=== PATIENT | male | born 1970 | race African-American/Black ===

== ENCOUNTER 2017-06-05 16:24 | Emergency (ER) | payer SELFPAY ==
[2017-06-05] MEDS ORDERED: NORMAL SALINE 1000 ML 1,000 ML IV ONE (17:48)
[2017-06-05] MEDS ORDERED: INSULIN REG, HUMAN 100 UNIT/ML 3 ML VIAL (PYX) IV ONE (17:48)
--- NOTE | 2017-06-05 17:49 | ER Document Report ---
ED Medical Screen (RME) - General Chief Complaint: High Blood Sugar Stated Complaint: HIGH BLOOD SUGAR Time Seen by Provider: 06/05/17 17:48 Notes: Patient states that he is diabetic and usually receives his medicine from the [facility]. However he states that he recently started a job and now he makes too much money to go to the clinic. Therefore he states he has no more medications. He states she has been without his metformin for 3 months and without his insulin for several days. Patient had a blood sugar of 460 at triage. He complains of frequent urination weakness and blurry vision. TRAVEL OUTSIDE OF THE [place] IN LAST 30 DAYS: No - Related Data Allergies/Adverse Reactions: No Known Allergies Allergy (Verified 06/05/17 16:27) Past Medical History - Social History Frequency of alcohol use: Occasional - Past Medical History Cardiac Medical History: Reports: Hx Hypertension Endocrine Medical History: Reports: Hx Diabetes Mellitus Type 2 Renal/ Medical History: Denies: Hx Peritoneal Dialysis GI Medical History: Reports: Hx Gastroesophageal Reflux Disease Past Surgical History: Reports: Hx Orthopedic Surgery - left hip - Immunizations Hx Diphtheria, Pertussis, Tetanus Vaccination: Yes - 2008 Physical Exam - Vital signs Vitals: Temp Pulse Resp BP Pulse Ox 99.1 F 99 16 138/83 H 99 06/05/17 16:38 06/05/17 16:38 06/05/17 16:38 06/05/17 16:38 06/05/17 16:38 Course - Vital Signs Vital signs: Temp Pulse Resp BP Pulse Ox 99.1 F 99 16 138/83 H 99 06/05/17 16:38 06/05/17 16:38 06/05/17 16:38 06/05/17 16:38 06/05/17 16:38
[2017-06-05 18:13] LABS: ABSOLUTE BASOPHILS # (AUTO) 0.1 10^3/uL (0.0-0.2); ABSOLUTE EOSINOPHILS # (AUTO) 0.2 10^3/uL (0.0-0.6); ABSOLUTE LYMPHOCYTES (AUTO) 2.6 10^3/uL (0.5-4.7); ABSOLUTE MONOCYTES (AUTO) 0.6 10^3/uL (0.1-1.4); ABSOLUTE NEUT (AUTO) 7.3 10^3/uL (1.7-8.2); BASOPHILS % (AUTO) 0.5 % (0-2); EOSINOPHILS % (AUTO) 1.8 % (0-6); HEMATOCRIT 39.9 % (37.9-51.0); HEMOGLOBIN 12.9 g/dL (13.5-17.0); LYMPHOCYTES % (AUTO) 24.3 % (13-45); MEAN CORPUSCULAR HEMOGLOBIN 22.8 pg (27.0-33.4); MEAN CORPUSCULAR HGB CONC 32.3 g/dL (32.0-36.0); MEAN CORPUSCULAR VOLUME 71 fl (80-97); MONOCYTES % (AUTO) 5.8 % (3-13); PLATELET COUNT 249 10^3/uL (150-450); RED BLOOD COUNT 5.65 10^6/uL (4.35-5.55); RED CELL DISTRIBUTION WIDTH 13.2 % (11.5-14.0); SEGMENTED NEUTROPHILS % (AUTO) 67.6 % (42-78); TOTAL CELLS COUNTED % (AUTO) 100 %; WHITE BLOOD COUNT 10.8 10^3/uL (4.0-10.5)
[2017-06-05 18:34] LABS: APPEARANCE,URINE CLEAR; BILIRUBIN,URINE NEGATIVE (NEGATIVE); COLOR,URINE STRAW; GLUCOSE, URINE >=500 mg/dL (NEGATIVE); KETONES,URINE TRACE mg/dL (NEGATIVE); LEUKOCYTE ESTERASE,URINE NEGATIVE (NEGATIVE); NITRITE,URINE NEGATIVE (NEGATIVE); PROTEIN,URINE NEGATIVE (NEGATIVE); UROBILINOGEN,URINE NEGATIVE mg/dL (<2.0)
[2017-06-05 18:37] LABS: ALANINE AMINOTRANSFERASE 28 U/L (21-72); ALBUMIN 4.4 g/dL (3.5-5.0); ALKALINE PHOSPHATASE 127 U/L (38-126); ANION GAP 16 (5-19); ASPARTATE AMINO TRANSFERASE 14 U/L (17-59); BILIRUBIN,DIRECT 0.3 mg/dL (0.0-0.4); BILIRUBIN,TOTAL 0.3 mg/dL (0.2-1.3); BLOOD UREA NITROGEN 8 mg/dL (7-20); CALCIUM 9.7 mg/dL (8.4-10.2); CARBON DIOXIDE 29 mmol/L (22-30); CHLORIDE 95 mmol/L (98-107); POTASSIUM 4.2 mmol/L (3.6-5.0); SODIUM 139.5 mmol/L (137-145); TOTAL PROTEIN 7.7 g/dL (6.3-8.2)
[2017-06-05 18:49] LABS: GLUCOSE 460 mg/dL (75-110)
[2017-06-05 19:24] LABS: VENOUS BLOOD BASE EXCESS 2.6 mmol/L; VENOUS BLOOD HCO3 28.6 mmol/L (20-32); VENOUS BLOOD PCO2 50.2 mmHg (35-63); VENOUS BLOOD PH 7.37 (7.30-7.42)
--- NOTE | 2017-06-05 19:49 | ER Document Report ---
ED Blood Sugar Problem - General Chief Complaint: High Blood Sugar Stated Complaint: HIGH BLOOD SUGAR Time Seen by Provider: 06/05/17 17:48 Notes: This is a 47-year-old male history of type 2 diabetes who has not been taking his medications who presents with hyperglycemia. Has had some increased frequency of urination and thirst. Otherwise denies any other symptoms other than blood sugar being elevated. Does not check his blood sugar. Was taking Humalog 10 units prior to each meal, Lantus 20 units at night as well as metformin twice a day. Has not taken any of this for approximately 3 months. TRAVEL OUTSIDE OF THE [place] IN LAST 30 DAYS: No - Related Data Allergies/Adverse Reactions: No Known Allergies Allergy (Verified 06/05/17 16:27) Past Medical History - General Information source: Patient - Social History Smoking Status: Current Every Day Smoker Cigarette use (# per day): Yes Frequency of alcohol use: None Drug Abuse: None Lives with: Family Family History: Reviewed & Not Pertinent, DM Patient has suicidal ideation: No Patient has homicidal ideation: No - Past Medical History Cardiac Medical History: Reports: Hx Hypertension Endocrine Medical History: Reports: Hx Diabetes Mellitus Type 2 Renal/ Medical History: Denies: Hx Peritoneal Dialysis GI Medical History: Reports: Hx Gastroesophageal Reflux Disease Past Surgical History: Reports: Hx Orthopedic Surgery - left hip - Immunizations Hx Diphtheria, Pertussis, Tetanus Vaccination: Yes - 2008 Review of Systems - Review of Systems Constitutional: No symptoms reported EENT: No symptoms reported Cardiovascular: No symptoms reported Respiratory: No symptoms reported Gastrointestinal: No symptoms reported Genitourinary: Frequency, Urgency. denies: Hematuria, Incontinence Male Genitourinary: No symptoms reported Musculoskeletal: No symptoms reported Skin: No symptoms reported Hematologic/Lymphatic: No symptoms reported Neurological/Psychological: No symptoms reported Physical Exam - Vital signs Vitals: Temp Pulse Resp BP Pulse Ox 99.1 F 99 16 138/83 H 99 06/05/17 16:38 06/05/17 16:38 06/05/17 16:38 06/05/17 16:38 06/05/17 16:38 Interpretation: Normal - General General appearance: Appears well, Alert - HEENT Head: Normocephalic, Atraumatic Eyes: Normal Pupils: PERRL - Respiratory Respiratory status: No respiratory distress Chest status: Nontender Breath sounds: Normal Chest palpation: Normal - Cardiovascular Rhythm: Regular Heart sounds: Normal auscultation Murmur: No - Abdominal Inspection: Normal Distension: No distension Bowel sounds: Normal Tenderness: Nontender Organomegaly: No organomegaly - Back Back: Normal, Nontender - Extremities General upper extremity: Normal inspection, Nontender, Normal color, Normal ROM , Normal temperature General lower extremity: Normal inspection, Nontender, Normal color, Normal ROM , Normal temperature, Normal weight bearing. No: Luisa's sign - Neurological Neuro grossly intact: Yes Cognition: Normal Orientation: AAOx4 [place] Coma Scale Eye Opening: Spontaneous [place] Coma Scale Verbal: Oriented [place] Coma Scale Motor: Obeys Commands [place] Coma Scale Total: 15 Speech: Normal Motor strength normal: LUE, RUE, LLE, RLE Sensory: Normal - Psychological Associated symptoms: Normal affect, Normal mood - Skin Skin Temperature: Warm Skin Moisture: Dry Skin Color: Normal Course - Re-evaluation Re-evalutation: 06/05/17 19:48 This is a well-appearing 47-year-old -[place] male in no acute distress with hyperglycemia. Will do basic labs. Did some diabetic education with regards to dietary changes that will help and bring blood sugar down. EKG was unremarkable. Giving some IV fluids and insulin at this time and reassess. It is unlikely that the patient is in DKA. 06/05/17 20:56 Not in DKA. Blood sugar coming down actually quite quickly. Will feed patient at this time. Will refill his prescriptions and advised to follow-up with [facility] as soon as possible. - Vital Signs Vital signs: Temp Pulse Resp BP Pulse Ox 99.1 F 99 16 138/83 H 99 06/05/17 16:38 06/05/17 16:38 06/05/17 16:38 06/05/17 16:38 06/05/17 16:38 - Laboratory Result Diagrams: 06/05/17 18:00 06/05/17 18:00 Laboratory results interpreted by me: 06/05/17 06/05/17 06/05/17 18:00 18:00 18:00 WBC 10.8 H RBC 5.65 H Hgb 12.9 L MCV 71 L MCH 22.8 L Chloride 95 L Glucose 460 H* AST 14 L Alkaline Phosphatase 127 H Urine Glucose (UA) >=500 H Urine Ketones TRACE H - EKG Interpretation by Me EKG shows normal: Sinus rhythm, [place], Intervals, QRS Complexes, ST-T Waves Discharge - Discharge Clinical Impression: Hyperglycemia due to type 2 diabetes mellitus Qualifiers: Diabetes mellitus local intermodal truck driver insulin use: with local intermodal truck driver use Qualified Code(s): E11.65 - Type 2 diabetes mellitus with hyperglycemia; Z79.4 - ocean transportation intermediary (current ) use of insulin; Z79.4 - ocean transportation intermediary (current) use of insulin; Z79.4 - ocean transportation intermediary (current) use of insulin; Z79.4 - ocean transportation intermediary (current) use of insulin Condition: Good Disposition: HOME, SELF-CARE Instructions: Diabetes ([facility]) Additional Instructions: It is very important that you begin your diabetic treatment is long-term consequences can be severe for poorly treated diabetes. Please follow-up with your clinic for further evaluation. It is also very important that you check your blood sugar on a regular basis. Prescriptions: Insulin Glargine,Hum.rec.anlog [Lantus Insulin 100 Unit/1 ml 10 ml] 10 unit SUBCUT QHS 30 Days #10 ml Metformin HCl [Glucophage 500 mg Tablet] 500 mg PO BID #60 tablet Referrals: [facility] [Provider Group] - Follow up as needed
[2017-06-05 21:21] VITALS: BP 127/76
--- NOTE | 2017-06-06 07:51 | EKG REPORT ---
SEVERITY:- NORMAL ECG - SINUS RHYTHM : Confirmed by: Damien Mckay MD 06-Jun-2017 07:50:25
== END 2017-06-05 21:19 | disposition home or self-care (01) ==
LOC: ER 16:24
DX: E11.65 Type 2 diabetes mellitus with hyperglycemia (principal); T38.3X6A Underdosing of insulin and oral hypoglycemic [antidiabetic] drugs, initial encounter; Z91.128 Patient's intentional underdosing of medication regimen for other reason; Z91.14 Patient's other noncompliance with medication regimen; F17.210 Nicotine dependence, cigarettes, uncomplicated; I10 Essential (primary) hypertension
CPT/HCPCS: 93005; 99284; 96360; 36415; 82962; 85025; 80053; 81001; 84484; 82803; 93010; J7030; J1815

== ENCOUNTER 2017-06-28 08:35 | Emergency (ER) | payer SELFPAY ==
[2017-06-28] MEDS ORDERED: NORMAL SALINE 1000 ML 1,000 ML IV ONE (09:15)
--- NOTE | 2017-06-28 09:51 | ER Document Report ---
ED Blood Sugar Problem <VERONICA MORRELL - Last Filed: 06/28/17 13:13> - General TRAVEL OUTSIDE OF THE [place] IN LAST 30 DAYS: No <BRIANA ROTHMAN - Last Filed: 06/28/17 13:46> - General Chief Complaint: High Blood Sugar Stated Complaint: BLOOD SUGAR PROBLEMS Time Seen by Provider: 06/28/17 09:37 Notes: 47-year-old male patient comes emergency room for elevated blood sugars. His blood sugars run in the 400 500 range. He was seen here on 06/05/2017 at that time reported no medications in 3 months. He was given a prescription for metformin 500 mg twice daily and Lantus 10 units nightly. He did not fill the Lantus prescription due to the expense of the medication. He did get the Metformin medicine. He was not acidotic on that visit. Review of his records going back several years shows that he never has a low CO2, is never in ketoacidosis despite running sugars in the 400-500 range and not taking any medication at all. The patient states that he has lost 16 pounds since the visit about 3 weeks ago , review of the records confirms this. I suspect he would do all right with oral hypoglycemic sulfonylurea medication. (VERONICA MORRELL) - Related Data Allergies/Adverse Reactions: No Known Allergies Allergy (Verified 06/05/17 16:27) Past Medical History - General Information source: Patient - Social History Smoking Status: Never Smoker Cigarette use (# per day): No Frequency of alcohol use: None Drug Abuse: None Lives with: Family Family History: Reviewed & Not Pertinent, DM - Past Medical History Cardiac Medical History: Reports: Hx Hypertension Endocrine Medical History: Reports: Hx Diabetes Mellitus Type 2 GI Medical History: Reports: Hx Gastroesophageal Reflux Disease Past Surgical History: Reports: Hx Orthopedic Surgery - left hip - Immunizations Hx Diphtheria, Pertussis, Tetanus Vaccination: Yes - 2008 <BRIANA ROTHMAN - Last Filed: 06/28/17 13:46> Review of Systems - Review of Systems Constitutional: See HPI, Other - elevated blood sugars, Weight loss - 16 lbs in 2-3 weeks EENT: No symptoms reported Cardiovascular: No symptoms reported Respiratory: No symptoms reported Gastrointestinal: No symptoms reported Genitourinary: No symptoms reported Male Genitourinary: No symptoms reported Musculoskeletal: No symptoms reported Skin: No symptoms reported Hematologic/Lymphatic: No symptoms reported Neurological/Psychological: No symptoms reported -: Yes All other systems reviewed and negative <BRIANA ROTHMAN - Last Filed: 06/28/17 13:46> Physical Exam <VERONICA MORRELL - Last Filed: 06/28/17 13:13> <BRIANA ROTHMAN - Last Filed: 06/28/17 13:46> - Vital signs Vitals: Temp Pulse Resp BP Pulse Ox 98.5 F 107 H 16 141/86 H 96 06/28/17 09:06 06/28/17 09:06 06/28/17 09:06 06/28/17 09:06 06/28/17 09:06 - Notes Notes: Physical Exam: General: Alert, appears well. HEENT: Normocephalic. Atraumatic. PERRL. Extraocular movements intact. Oropharynx clear. Neck: Supple. Non-tender. Respiratory: No respiratory distress. Clear and equal breath sounds bilaterally. Cardiovascular: Regular rate and rhythm. Abdominal: Normal Inspection. Non-tender. No distension. Normal Bowel Sounds. Back: Non-tender. No deformity or step off. Extremities: Moves all four extremities. Upper extremities: Normal inspection. Normal ROM. Lower extremities: Normal inspection. No edema. Normal ROM. Neurological: Normal cognition. AAOx4. Normal speech. Psychological: Normal affect. Normal Mood. Skin: Warm. Dry. Normal color. (BRIANA ROTHMAN) Course - Laboratory Result Diagrams: 06/28/17 09:45 06/28/17 09:45 <VERONICA MORRELL - Last Filed: 06/28/17 13:13> - Laboratory Result Diagrams: 06/28/17 09:45 06/28/17 09:45 <BRIANA ROTHMAN - Last Filed: 06/28/17 13:46> - Re-evaluation Re-evalutation: 06/28/17 13:14 Patient's blood sugar came down from 705-357 with 8 units of regular insulin. He will be discharged with prescriptions for metformin and glipizide. He will be encouraged to follow-up with primary care provider to manage his diabetes. (VERONICA MORRELL) - Vital Signs Vital signs: Temp Pulse Resp BP Pulse Ox 98.5 F 107 H 16 141/86 H 96 06/28/17 09:06 06/28/17 09:06 06/28/17 09:06 06/28/17 09:06 06/28/17 09:06 - Laboratory Laboratory results interpreted by me: 06/28/17 06/28/17 06/28/17 09:45 09:45 09:45 WBC 11.7 H RBC 6.09 H Hgb 13.3 L MCV 71 L MCH 21.8 L MCHC 30.8 L Seg Neutrophils % 79.1 H Absolute Neutrophils 9.3 H Chloride 90 L Anion Gap 20 H Glucose 705 H* POC Glucose Hemoglobin A1c % > 14.0 H Alkaline Phosphatase 161 H Urine Glucose (UA) Urine Ketones 06/28/17 06/28/17 10:20 12:56 WBC RBC Hgb MCV MCH MCHC Seg Neutrophils % Absolute Neutrophils Chloride Anion Gap Glucose POC Glucose 357 H Hemoglobin A1c % Alkaline Phosphatase Urine Glucose (UA) >=500 H Urine Ketones 20 H Discharge <VERONICA MORRELL - Last Filed: 06/28/17 13:13> <BRIANA ROTHMAN - Last Filed: 06/28/17 13:46> - Discharge Clinical Impression: Hyperglycemia due to type 2 diabetes mellitus Qualifiers: Diabetes mellitus shelter insulin use: without retail parts pro use Qualified Code(s ): E11.65 - Type 2 diabetes mellitus with hyperglycemia Condition: Stable Disposition: HOME, SELF-CARE Additional Instructions: Diabetes You have an abnormally high blood sugar. Uncontrolled high blood sugar leads to early heart disease, strokes, nerve damage, eye damage, and kidney damage. All diabetics should follow a diet designed to control the blood sugar. Overweight diabetics should exercise regularly and lose weight. If this is not sufficient to control the blood sugar, pills or insulin shots are necessary. Younger people who develop diabetes almost always require insulin daily. Home testing of blood sugars or urine sugar is required. Diabetic teaching is available to help you figure insulin doses and monitor the blood sugar. Call the physician if there is faintness, excess sleepiness, or very rapid breathing. If hypoglycemia (LOW blood sugar) develops, symptoms are shakiness, weakness, sweating, and confusion. In this case, you should eat or drink something with sugar at once. Take the medications as prescribed. You were given a one-month supply of diabetes medication. Check your blood sugars regularly. Follow-up with a local medical doctor before you run out of medication. RETURN TO THE EMERGENCY ROOM IF ANY NEW OR WORSENING SYMPTOMS. Prescriptions: Glipizide 5 mg PO DAILY #30 tablet Metformin HCl 850 mg PO BID #60 tablet Scribe Attestation: 06/28/17 13:17 I personally performed the services described in the documentation, reviewed and edited the documentation which was dictated to the scribe in my presence, and it accurately records my words and actions. (VERONICA MORRELL) Scribe Documentation - Scribe Written by Lali:: Lali Lindo, 06/28/2017 1346 acting as scribe for :: Holley <BRIANA ROTHMAN - Last Filed: 06/28/17 13:46>
[2017-06-28 09:56] LABS: ABSOLUTE LYMPHOCYTES (AUTO) 1.7 10^3/uL (0.5-4.7); ABSOLUTE MONOCYTES (AUTO) 0.6 10^3/uL (0.1-1.4); ABSOLUTE NEUT (AUTO) 9.3 10^3/uL (1.7-8.2); BASOPHILS % (AUTO) 0.4 % (0-2); EOSINOPHILS % (AUTO) 0.4 % (0-6); HEMATOCRIT 43.2 % (37.9-51.0); HEMOGLOBIN 13.3 g/dL (13.5-17.0); LYMPHOCYTES % (AUTO) 14.9 % (13-45); MEAN CORPUSCULAR HEMOGLOBIN 21.8 pg (27.0-33.4); MEAN CORPUSCULAR HGB CONC 30.8 g/dL (32.0-36.0); MEAN CORPUSCULAR VOLUME 71 fl (80-97); MONOCYTES % (AUTO) 5.2 % (3-13); PLATELET COUNT 291 10^3/uL (150-450); RED BLOOD COUNT 6.09 10^6/uL (4.35-5.55); RED CELL DISTRIBUTION WIDTH 13.5 % (11.5-14.0); SEGMENTED NEUTROPHILS % (AUTO) 79.1 % (42-78); TOTAL CELLS COUNTED % (AUTO) 100 %; WHITE BLOOD COUNT 11.7 10^3/uL (4.0-10.5)
[2017-06-28 10:14] LABS: ALANINE AMINOTRANSFERASE 36 U/L (21-72); ALBUMIN 4.6 g/dL (3.5-5.0); ALKALINE PHOSPHATASE 161 U/L (38-126); ASPARTATE AMINO TRANSFERASE 17 U/L (17-59); BILIRUBIN,DIRECT 0.4 mg/dL (0.0-0.4); BILIRUBIN,TOTAL 0.4 mg/dL (0.2-1.3); BLOOD UREA NITROGEN 12 mg/dL (7-20); CHLORIDE 90 mmol/L (98-107); POTASSIUM 4.7 mmol/L (3.6-5.0); TOTAL PROTEIN 7.7 g/dL (6.3-8.2)
[2017-06-28 10:19] LABS: CARBON DIOXIDE 28 mmol/L (22-30); SODIUM 138.4 mmol/L (137-145)
[2017-06-28] MEDS ORDERED: INSULIN REG, HUMAN 100 UNIT/ML 3 ML VIAL (PYX) IV ONE (10:41)
[2017-06-28 10:49] LABS: ANION GAP 20 (5-19)
[2017-06-28 10:50] LABS: GLUCOSE 705 mg/dL (75-110)
[2017-06-28 11:33] LABS: APPEARANCE,URINE CLEAR; BILIRUBIN,URINE NEGATIVE (NEGATIVE); COLOR,URINE STRAW; GLUCOSE, URINE >=500 mg/dL (NEGATIVE); KETONES,URINE 20 mg/dL (NEGATIVE); LEUKOCYTE ESTERASE,URINE NEGATIVE (NEGATIVE); NITRITE,URINE NEGATIVE (NEGATIVE); PROTEIN,URINE NEGATIVE (NEGATIVE); UROBILINOGEN,URINE NEGATIVE mg/dL (<2.0)
[2017-06-28 14:15] VITALS: BP 109/79
== END 2017-06-28 13:39 | disposition home or self-care (01) ==
LOC: ER 08:35
DX: E11.65 Type 2 diabetes mellitus with hyperglycemia (principal); Z79.4 Long term (current) use of insulin; Z79.84 Long term (current) use of oral hypoglycemic drugs; R63.4 Abnormal weight loss; I10 Essential (primary) hypertension; E11.9 Type 2 diabetes mellitus without complications
CPT/HCPCS: 99285; 96360; 36415; 82962; 83735; 85025; 80053; 81001; 83036; J1815; J7030

== ENCOUNTER 2017-09-20 07:59 | Inpatient (IN) | payer SELFPAY ==
[2017-09-20] MEDS ORDERED: RINGERS SOLUTION,LACTATED 1,000 ML IV ONE (08:45)
--- NOTE | 2017-09-20 08:50 | ER Document Report ---
ED Medical Screen (RME) - General Chief Complaint: High Blood Sugar Stated Complaint: FALL/HEADACHE, BLOOD SUGAR ISSUE Time Seen by Provider: 09/20/17 08:44 Mode of Arrival: Ambulatory Information source: Patient Notes: Patient presents to the emergency department with multiple complaints to include high blood glucose numbness vomiting 2 days ago. No vomiting since that time. Reports decreased appetite. Upon further assessment patient reports the numbness is actually a temporal headache. No obvious neuro deficits noted equal fleet manager/dispatch face symmetric. Clear speech. He reports that he has been out of his diabetic medication for at least 3 months. Reports when he woke up this morning fell out of bed. I have greeted and performed a rapid initial assessment of this patient. A comprehensive ED assessment and evaluation of the patient, analysis of test results and completion of the medical decision making process will be conducted by additional ED providers. TRAVEL OUTSIDE OF THE [place] IN LAST 30 DAYS: No - Related Data Allergies/Adverse Reactions: No Known Allergies Allergy (Verified 06/05/17 16:27) Past Medical History - Past Medical History Cardiac Medical History: Reports: Hx Hypertension Endocrine Medical History: Reports: Hx Diabetes Mellitus Type 2 Renal/ Medical History: Denies: Hx Peritoneal Dialysis GI Medical History: Reports: Hx Gastroesophageal Reflux Disease Past Surgical History: Reports: Hx Orthopedic Surgery - left hip - Immunizations Hx Diphtheria, Pertussis, Tetanus Vaccination: Yes - 2008 Physical Exam - Vital signs Vitals: Temp Pulse Resp BP Pulse Ox 97.9 F 109 H 15 111/83 99 09/20/17 08:10 09/20/17 08:10 09/20/17 08:10 09/20/17 08:10 09/20/17 08:10 Course - Vital Signs Vital signs: Temp Pulse Resp BP Pulse Ox 97.9 F 109 H 15 111/83 99 09/20/17 08:10 09/20/17 08:10 09/20/17 08:10 09/20/17 08:10 09/20/17 08:10
[2017-09-20 09:25] LABS: ABSOLUTE BASOPHILS # (AUTO) 0.1 10^3/uL (0.0-0.2); ABSOLUTE LYMPHOCYTES (AUTO) 1.5 10^3/uL (0.5-4.7); ABSOLUTE MONOCYTES (AUTO) 0.8 10^3/uL (0.1-1.4); BASOPHILS % (AUTO) 0.6 % (0-2); EOSINOPHILS % (AUTO) 0.3 % (0-6); HEMATOCRIT 39.2 % (37.9-51.0); HEMOGLOBIN 12.1 g/dL (13.5-17.0); LYMPHOCYTES % (AUTO) 10.1 % (13-45); MEAN CORPUSCULAR HEMOGLOBIN 22.5 pg (27.0-33.4); MEAN CORPUSCULAR HGB CONC 30.9 g/dL (32.0-36.0); MEAN CORPUSCULAR VOLUME 73 fl (80-97); MONOCYTES % (AUTO) 5.3 % (3-13); PLATELET COUNT 315 10^3/uL (150-450); RED BLOOD COUNT 5.38 10^6/uL (4.35-5.55); RED CELL DISTRIBUTION WIDTH 14.6 % (11.5-14.0); SEGMENTED NEUTROPHILS % (AUTO) 83.7 % (42-78); TOTAL CELLS COUNTED % (AUTO) 100 %; WHITE BLOOD COUNT 14.4 10^3/uL (4.0-10.5)
[2017-09-20 09:48] LABS: ALANINE AMINOTRANSFERASE 24 U/L (21-72); ALBUMIN 4.8 g/dL (3.5-5.0); ALKALINE PHOSPHATASE 136 U/L (38-126); ASPARTATE AMINO TRANSFERASE 15 U/L (17-59); BILIRUBIN,DIRECT 0.4 mg/dL (0.0-0.4); BLOOD UREA NITROGEN 11 mg/dL (7-20); POTASSIUM 4.7 mmol/L (3.6-5.0); TOTAL PROTEIN 8.4 g/dL (6.3-8.2)
[2017-09-20 09:52] LABS: APPEARANCE,URINE CLEAR; BILIRUBIN,URINE NEGATIVE (NEGATIVE); COLOR,URINE STRAW; GLUCOSE, URINE >=500 mg/dL (NEGATIVE); KETONES,URINE 20 mg/dL (NEGATIVE); LEUKOCYTE ESTERASE,URINE NEGATIVE (NEGATIVE); NITRITE,URINE NEGATIVE (NEGATIVE); PROTEIN,URINE NEGATIVE (NEGATIVE); URINE SPECIFIC GRAVITY 1.028; UROBILINOGEN,URINE NEGATIVE mg/dL (<2.0)
[2017-09-20 09:53] LABS: CARBON DIOXIDE 21 mmol/L (22-30); CHLORIDE 93 mmol/L (98-107); SODIUM 136.3 mmol/L (137-145)
--- NOTE | 2017-09-20 09:54 | EKG REPORT ---
SEVERITY:- OTHERWISE NORMAL ECG - SINUS RHYTHM ATRIAL PREMATURE COMPLEX ST ELEV, PROBABLE NORMAL EARLY REPOL PATTERN : Confirmed by: Betty Diaz MD 20-Sep-2017 09:54:22
[2017-09-20 09:55] LABS: ANION GAP 22 (5-19)
[2017-09-20 09:57] LABS: GLUCOSE 621 mg/dL (75-110)
--- NOTE | 2017-09-20 10:34 | ER Document Report ---
ED Blood Sugar Problem - General Mode of Arrival: Ambulatory Information source: Patient TRAVEL OUTSIDE OF THE [place] IN LAST 30 DAYS: No <BRIANA ROTHMAN - Last Filed: 09/20/17 13:36> <VERONICA MORRELL - Last Filed: 09/20/17 15:35> - General Chief Complaint: High Blood Sugar Stated Complaint: FALL/HEADACHE, BLOOD SUGAR ISSUE Time Seen by Provider: 09/20/17 08:44 Notes: 47-year-old noncompliant diabetic that presents to the emergency department today with complaints of elevated BGL's, pain behind left eye, dizziness, lightheadedness, and elevated heart rate. Patient states when getting out of bed this morning he fell because he was "too lightheaded to stand". Patient was seen here on 06/28/17 and given prescriptions for his insulin and metformin which he decided to not get filled because he "has to walk everywhere now". ( BRIANA ROTHMAN) - Related Data Allergies/Adverse Reactions: No Known Allergies Allergy (Verified 06/05/17 16:27) Past Medical History - General Information source: Patient - Social History Smoking Status: Current Every Day Smoker Cigarette use (# per day): Yes Lives with: Family Family History: Reviewed & Not Pertinent, DM Patient has suicidal ideation: No Patient has homicidal ideation: No - Past Medical History Cardiac Medical History: Reports: Hx Hypertension Endocrine Medical History: Reports: Hx Diabetes Mellitus Type 2 GI Medical History: Reports: Hx Gastroesophageal Reflux Disease Past Surgical History: Reports: Hx Orthopedic Surgery - left hip - Immunizations Hx Diphtheria, Pertussis, Tetanus Vaccination: Yes - 2008 <BRIANA ROTHMAN - Last Filed: 09/20/17 13:36> Review of Systems - Review of Systems Constitutional: No symptoms reported EENT: See HPI, Other - Pain behind left eye Cardiovascular: See HPI, Heart racing, Dizziness, Lightheaded Respiratory: No symptoms reported Gastrointestinal: No symptoms reported Genitourinary: No symptoms reported Male Genitourinary: No symptoms reported Musculoskeletal: No symptoms reported Skin: No symptoms reported Hematologic/Lymphatic: No symptoms reported Neurological/Psychological: No symptoms reported -: Yes All other systems reviewed and negative <BRIANA ROTHMAN - Last Filed: 09/20/17 13:36> Physical Exam <BRIANA ROTHMAN - Last Filed: 09/20/17 13:36> <VERONICA MORRELL - Last Filed: 09/20/17 15:35> - Vital signs Vitals: Temp Pulse Resp BP Pulse Ox 97.9 F 109 H 15 111/83 99 09/20/17 08:10 09/20/17 08:10 09/20/17 08:10 09/20/17 08:10 09/20/17 08:10 - Notes Notes: Physical Exam: General: Alert, appears well. Ketone odors on breath. HEENT: Normocephalic. Atraumatic. PERRL. Extraocular movements intact. Oropharynx clear. Left temporal and parietal tenderness to palpation. Neck: Supple. Posterior cervical musculature tenderness to palpation. Respiratory: No respiratory distress. Clear and equal breath sounds bilaterally. Cardiovascular: Regular rate and rhythm. Abdominal: Normal Inspection. Non-tender. No distension. Normal Bowel Sounds. Back: Non-tender. No deformity or step off. Extremities: Moves all four extremities. Upper extremities: Normal inspection. Normal ROM. Lower extremities: Normal inspection. No edema. Normal ROM. Neurological: Normal cognition. AAOx4. Normal speech. Psychological: Normal affect. Normal Mood. Skin: Warm. Dry. Normal color. (BRIANA ROTHMAN) Course - Laboratory Result Diagrams: 09/20/17 09:05 09/20/17 09:05 <BRIANA ROTHMAN - Last Filed: 09/20/17 13:36> - Laboratory Result Diagrams: 09/20/17 09:05 09/20/17 13:02 - EKG Interpretation by Me EKG shows normal: Sinus rhythm, [place], Intervals, QRS Complexes. abnormal: ST-T Waves - Early repolarization pattern Rate: Normal - 92 Rhythm: NSR, APC's When compared to previous EKG there are: No significant change - Consults Dr. Leavitt Time consulted: 15:25 Consulted provider: will come to ER <VERONICA MORRELL - Last Filed: 09/20/17 15:35> - Re-evaluation Re-evalutation: 09/20/17 15:31 About 1.5 hours after I saw the patient, the nurse noted him to have runs of tachycardia and got an EKG. G showed a heart rate of 132 and look suspicious for atrial flutter. I did have the lumber loader section cutter reviewed the second EKG and he agreed that it is most likely atrial flutter. Patient was given 10 mg of Cardizem IV, and it slowed his rate down to about 100 where he has an atrial rhythm with frequent PACs and occasional PVCs. (VERONICA MORRELL) - Vital Signs Vital signs: Temp Pulse Resp BP Pulse Ox 97.9 F 109 H 0 L 117/80 100 09/20/17 08:10 09/20/17 08:10 09/20/17 14:15 09/20/17 14:15 09/20/17 14:15 - Laboratory Laboratory results interpreted by me: 09/20/17 09/20/17 09/20/17 08:19 09:05 09:05 WBC 14.4 H Hgb 12.1 L MCV 73 L MCH 22.5 L MCHC 30.9 L RDW 14.6 H Seg Neutrophils % 83.7 H Lymphocytes % 10.1 L Absolute Neutrophils 12.0 H D-Dimer Sodium 136.3 L Chloride 93 L Carbon Dioxide 21 L Anion Gap 22 H Creatinine Glucose 621 H* POC Glucose > 550 H* AST 15 L Alkaline Phosphatase 136 H Total Protein 8.4 H Urine Glucose (UA) Urine Ketones 09/20/17 09/20/17 09/20/17 09:05 09:05 13:02 WBC Hgb MCV MCH MCHC RDW Seg Neutrophils % Lymphocytes % Absolute Neutrophils D-Dimer 0.76 H Sodium Chloride Carbon Dioxide 21 L Anion Gap Creatinine 0.51 L Glucose 265 H POC Glucose AST Alkaline Phosphatase Total Protein Urine Glucose (UA) >=500 H Urine Ketones 20 H Critical Care Note - Critical Care Note Total time excluding time spent on procedures (mins): 30 <VERONICA MORRELL - Last Filed: 09/20/17 15:35> Discharge <BRIANA ROTHMAN - Last Filed: 09/20/17 13:36> - Discharge Admitting Provider: Hospitalist Unit Admitted: [facility]U <VERONICA MORRELL - Last Filed: 09/20/17 15:35> - Discharge Clinical Impression: Hyperglycemia, Non-compliant patient, Atrial flutter with rapid ventricular response Condition: Stable Disposition: ADMITTED INPATIENT Scribe Attestation: 09/20/17 15:28 I personally performed the services described in the documentation, reviewed and edited the documentation which was dictated to the scribe in my presence, and it accurately records my words and actions. (VERONICA MORRELL) Scribe Documentation - Scribe Written by Lali:: Lali Lindo, 09/20/2017 1347 acting as scribe for :: Holley <BRIANA ROTHMAN - Last Filed: 09/20/17 13:36>
[2017-09-20] MEDS ORDERED: INSULIN REG, HUMAN 100 UNIT/ML 3 ML VIAL (PYX) IV ONE (10:52)
[2017-09-20] MEDS ORDERED: NORMAL SALINE 1000 ML 1,000 ML IV ONE ×2 (10:53→12:25)
[2017-09-20 12:29] LABS: CREATINE KINASE 88 U/L (55-170)
[2017-09-20 13:03] LABS: URINE AMPHETAMINES SCREEN NEGATIVE; URINE BARBITURATES SCREEN NEGATIVE; URINE BENZODIAZEPINES SCREEN NEGATIVE; URINE COCAINE SCREEN NEGATIVE; URINE MARIJUANA (THC) SCREEN NEGATIVE; URINE METHADONE SCREEN NEGATIVE; URINE PHENCYCLIDINE SCREEN NEGATIVE
[2017-09-20 13:38] LABS: ANION GAP 15 (5-19); BLOOD UREA NITROGEN 9 mg/dL (7-20); CALCIUM 8.6 mg/dL (8.4-10.2); CARBON DIOXIDE 21 mmol/L (22-30); CHLORIDE 105 mmol/L (98-107); GLUCOSE 265 mg/dL (75-110); SODIUM 141.1 mmol/L (137-145)
[2017-09-20] MEDS ORDERED: DILTIAZEM HCL INJ 25 MG/5 ML VIAL IV ONE (13:46)
[2017-09-20] MEDS ORDERED: CIPROFLOXACIN HCL 750 MG TABLET PO ONE (14:02)
[2017-09-20] MEDS ORDERED: METRONIDAZOLE 500 MG TABLET PO ONE (14:02)
[2017-09-20 15:58] LABS: CREATINE KINASE 93 U/L (55-170)
--- NOTE | 2017-09-20 16:01 | RADIOLOGY REPORT (SQ) ---
EXAM DESCRIPTION: CHEST SINGLE VIEW COMPLETED DATE/TIME: 09/20/2017 3:46 pm REASON FOR STUDY: Atrial flutter with RVR COMPARISON: 09/29/2012. EXAM PARAMETERS: NUMBER OF VIEWS: One view. TECHNIQUE: Single frontal radiographic view of the chest acquired. RADIATION DOSE: NA LIMITATIONS: None. FINDINGS: LUNGS AND PLEURA: No opacities, masses or pneumothorax. No pleural effusion. MEDIASTINUM AND HILAR STRUCTURES: No masses. Contour normal. HEART AND VASCULAR STRUCTURES: Heart normal in size. Normal vasculature. BONES: Scoliosis. Deformity of the left scapula, presumed due to previous trauma. HARDWARE: None in the chest. OTHER: No other significant finding. IMPRESSION: NO ACUTE RADIOGRAPHIC FINDING IN THE CHEST. TECHNICAL DOCUMENTATION: JOB ID: [id number] [employer]- All Rights Reserved Reading location - IP/workstation name: [email or web address]
[2017-09-20 16:11] LABS: CREATINE KINASE MB 1.01 ng/mL (<4.55); TROPONIN I < 0.012 ng/mL
[2017-09-20] MEDS ORDERED: GLUCAGON,HUMAN RECOMB 1 MG INJ IM PRN (16:56)
[2017-09-20] MEDS ORDERED: IPRATROPIUM/ALBUTEROL 0.5-2.5 MG/3 ML AMPUL NEB PRN (16:56)
[2017-09-20] MEDS ORDERED: OXYCODONE-ACETAMINOPHEN 5-325 MG TABLET PO PRN (16:56)
[2017-09-20] MEDS ORDERED: DEXTROSE 40% GEL 15 GM TUBE PO PRN ×2 (16:56)
[2017-09-20] MEDS ORDERED: ACETAMINOPHEN 325 MG TABLET PO PRN (16:56)
[2017-09-20] MEDS ORDERED: PROMETHAZINE HCL INJ 25 MG/1 ML VIAL IV PRN (16:56)
[2017-09-20] MEDS ORDERED: ZOLPIDEM TARTRATE 5 MG TABLET PO PRN (16:56)
[2017-09-20] MEDS ORDERED: DEXTROSE 50%-WATER 25 GM/50 ML DISP.SYRIN IV PRN ×2 (16:56)
--- NOTE | 2017-09-20 18:32 | PDOC H&P ---
History of Present Illness Admission Date/PCP: 09/20/17 15:41 Patient complains of: Elevated blood sugar History of Present Illness: JAQUI ORELLANA is a 47 year old male Patient presents emergency room with complaints of his blood sugar being high. His glucose was found to be 620 on initial presentatation. He does have a known history of type 2 diabetes mellitus but he appears patient has been having difficulty procuring his insulin and his noncompliant because of these. He had taken metformin at one time but he says this caused him to have diarrhea and he had to be taken off it but on the other hand is unable to afford his insulin. His sugar was actually quickly corrected in the emergency room but it appears that in the course of his management he was found to be tachycardic. Patient did appear to be in atrial fibrillation with a rapid ventricular response. Was treated with 1 dose of diltiazem 10 mg IV and it appears he did break and is currently in sinus rhythm. Patient denies any problem such symptoms or any prior diagnosis of atrial fibrillation. There is no fever nausea or vomiting or chest pain Past Medical History Cardiac Medical History: Reports: Hypertension Endocrine Medical History: Reports: Diabetes Mellitus Type 2 GI Medical History: Reports: Gastroesophageal Reflux Disease Past Surgical History Past Surgical History: Reports: Orthopedic Surgery - left hip Social History Lives with: Family Smoking Status: Current Every Day Smoker - Advance Directive Resuscitation Status: Full Code Family History Family History: Reviewed & Not Pertinent, DM Parental Family History Reviewed: Yes Children Family History Reviewed: NA Sibling(s) Family History Reviewed.: Yes Medication/Allergy Home Medications: No Home Medications 09/20/17 Allergies/Adverse Reactions: No Known Allergies Allergy (Verified 06/05/17 16:27) Review of Systems All systems: reviewed and no additional remarkable complaints except as stated Physical Exam Vital Signs: Temp Pulse Resp BP Pulse Ox 97.5 F 94 16 120/83 100 09/20/17 16:59 09/20/17 17:07 09/20/17 16:59 09/20/17 16:59 09/20/17 16:59 Intake & Output 09/19/17 09/20/17 09/21/17 06:59 06:59 06:59 Intake Total 237 Balance 237 Weight 62.9 kg General appearance: PRESENT: no acute distress, well-developed, well-nourished Head exam: PRESENT: atraumatic, normocephalic Eye exam: PRESENT: conjunctiva pink, EOMI, PERRLA. ABSENT: scleral icterus Ear exam: PRESENT: normal external ear exam Mouth exam: PRESENT: moist, tongue midline Neck exam: ABSENT: carotid bruit, JVD, lymphadenopathy, thyromegaly Respiratory exam: PRESENT: clear to auscultation harvey. ABSENT: rales, rhonchi, wheezes Cardiovascular exam: PRESENT: RRR. ABSENT: diastolic murmur, rubs, systolic murmur Pulses: PRESENT: normal dorsalis pedis pul Vascular exam: PRESENT: normal capillary refill GI/Abdominal exam: PRESENT: normal bowel sounds, soft. ABSENT: distended, guarding, mass, organolmegaly, rebound, tenderness Rectal exam: PRESENT: deferred Extremities exam: PRESENT: full ROM. ABSENT: calf tenderness, clubbing, pedal edema Neurological exam: PRESENT: alert, awake, oriented to person, oriented to place , oriented to time, oriented to situation, CN II-XII grossly intact. ABSENT: motor sensory deficit Psychiatric exam: PRESENT: appropriate affect, normal mood. ABSENT: homicidal ideation, suicidal ideation Skin exam: PRESENT: dry, intact, warm. ABSENT: cyanosis, rash Results Laboratory Results: 09/20/17 09:05 09/20/17 13:02 MCV 73 fl (80-97) L 09/20/17 09:05 MCH 22.5 pg (27.0-33.4) L 09/20/17 09:05 MCHC 30.9 g/dL (32.0-36.0) L 09/20/17 09:05 RDW 14.6 % (11.5-14.0) H 09/20/17 09:05 Seg Neutrophils % 83.7 % (42-78) H 09/20/17 09:05 Lymphocytes % 10.1 % (13-45) L 09/20/17 09:05 Monocytes % 5.3 % (3-13) 09/20/17 09:05 Eosinophils % 0.3 % (0-6) 09/20/17 09:05 Basophils % 0.6 % (0-2) 09/20/17 09:05 Absolute Neutrophils 12.0 10^3/uL (1.7-8.2) H 09/20/17 09:05 Absolute Lymphocytes 1.5 10^3/uL (0.5-4.7) 09/20/17 09:05 Absolute Monocytes 0.8 10^3/uL (0.1-1.4) 09/20/17 09:05 Absolute Eosinophils 0.0 10^3/uL (0.0-0.6) 09/20/17 09:05 Absolute Basophils 0.1 10^3/uL (0.0-0.2) 09/20/17 09:05 Chloride 105 mmol/L (98-107) 09/20/17 13:02 Carbon Dioxide 21 mmol/L (22-30) L 09/20/17 13:02 Anion Gap 15 (5-19) 09/20/17 13:02 Est GFR ( Amer) > 60 (>60) 09/20/17 13:02 Est GFR (Non-Af Amer) > 60 (>60) 09/20/17 13:02 Glucose 265 mg/dL (75-110) H 09/20/17 13:02 Calcium 8.6 mg/dL (8.4-10.2) 09/20/17 13:02 Magnesium 2.2 mg/dL (1.6-2.3) 09/20/17 09:05 Total Bilirubin 1.0 mg/dL (0.2-1.3) 09/20/17 09:05 AST 15 U/L (17-59) L 09/20/17 09:05 ALT 24 U/L (21-72) 09/20/17 09:05 Alkaline Phosphatase 136 U/L (38-126) H 09/20/17 09:05 Total Protein 8.4 g/dL (6.3-8.2) H 09/20/17 09:05 Albumin 4.8 g/dL (3.5-5.0) 09/20/17 09:05 TSH 0.87 uIU/mL (0.47-4.68) 09/20/17 09:05 Urine Color STRAW 09/20/17 09:05 Urine Appearance CLEAR 09/20/17 09:05 Urine pH 5.0 (5.0-9.0) 09/20/17 09:05 Ur Specific [place] 1.028 09/20/17 09:05 Urine Protein NEGATIVE mg/dL (NEGATIVE) 09/20/17 09:05 Urine Glucose (UA) >=500 mg/dL (NEGATIVE) H 09/20/17 09:05 Urine Ketones 20 mg/dL (NEGATIVE) H 09/20/17 09:05 Urine Blood NEGATIVE (NEGATIVE) 09/20/17 09:05 Urine Nitrite NEGATIVE (NEGATIVE) 09/20/17 09:05 Ur Leukocyte Esterase NEGATIVE (NEGATIVE) 09/20/17 09:05 Urine WBC (Auto) 0 /HPF 09/20/17 09:05 09/20/17 09/20/17 09/20/17 09:05 13:02 13:02 Creatine Kinase 88 93 CK-MB (CK-2) 1.01 Troponin I < 0.012 Impressions: Chest X-Ray 09/20/17 15:31 IMPRESSION: NO ACUTE RADIOGRAPHIC FINDING IN THE CHEST. 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 He will be placed on sliding scale insulin as well as Lantus insulin. Will contact our social work coordinator to see how can help this gentleman as this is going to be a recurrent problem if he is unable to afford his insulin. We will also consider starting him on oral hypoglycemic agent (2) Atrial fibrillation by electrocardiogram Is this a current diagnosis for this admission?: Yes Plan: This is likely related to his hyperglycemia and electrolyte abnormalities. He did receive Cardizem IV in the ER and he has since been in sinus rhythm. I will go ahead and obtain an echocardiogram and that Dr. Griffin has been consulted. He is still tachycardic so I will start him off on low-dose Cardizem. (3) Hyperglycemia Is this a current diagnosis for this admission?: Yes Plan: Secondary to noncompliance with medication regimen (4) Non-compliant patient Is this a current diagnosis for this admission?: Yes - Time Time Spent: 50 to 70 Minutes Medications reviewed and adjusted accordingly: Yes Anticipated discharge: Home Within: within 48 hours - Inpatient Certification Based on my medical assessment, after consideration of the patient's comorbidities, presenting symptoms, or acuity I expect that the services needed warrant INPATIENT care.: Yes Medical Necessity: Need For IV Fluids, Risk of Complication if Not Cared For in Hospital
[2017-09-20] MEDS: DILTIAZEM HCL 120 MG CAP.SR.24H PO SCH (20:18)
[2017-09-20] MEDS: NORMAL SALINE 1000 ML 1,000 ML IV PRN (20:48)
[2017-09-20] MEDS: INSULIN REG, HUMAN 100 UNIT/ML 3 ML VIAL (PYX) SUBCUT PRN (21:53)
[2017-09-20] MEDS: FAMOTIDINE 20 MG TABLET PO SCH (21:54)
[2017-09-20] MEDS ORDERED: INSULIN GLARGINE,HUM.REC.ANLOG 300 UNIT/3 ML INSULN.PEN SUBCUT SCH (22:00)
--- NOTE | 2017-09-20 22:08 | XCELERA REPORT ---
[address] [address] Transthoracic Echocardiogram Report Name: JAQUI ORELLANA Age: 47 yrs Gender: Male : 1970 Patient Status: Inpatient Patient Location: [address] [place], [place] [address] Study Date: 09/20/2017 07:48 PM Height: 67 in Weight: 138 lb BSA: 1.7 m2 Procedure: A complete two-dimensional transthoracic echocardiogram was performed (2D, M-mode, spectral and color flow Doppler). The study was technically adequate with some images being suboptimal in quality. Reason For Study: Atrial Fibrillation, New Ordering Physician: WILFREDO CHOUDHURY Performed By: Courtney Valerio Interpretation Summary The left ventricular ejection fraction is normal. There is borderline concentric left ventricular hypertrophy. Doppler measurements suggest impaired left ventricular relaxation, which is associated with grade I/IV or mild diastolic dysfunction The left ventricle is grossly normal size. Wall motion cannot be accurately commented on, but no definite regional wall motion abnormalities noted. The right ventricular systolic function is normal. The right atrium is normal. The left atrial size is normal. There is a trace to mild amount of mitral regurgitation There is no mitral valve stenosis. No aortic regurgitation is present. There is no aortic valve stenosis There is a trace or physiologic amount of tricuspid regurgitation Right ventricular systolic pressure is at the upper limits of normal The aortic root is not well visualized but is probably normal size. The inferior vena cava was not well visualized Minimal pericardial effusion. MMode/2D Measurements & Calculations RVDd: 1.9 cm LVIDd: 4.4 cm FS: 37.0 % LA dimension: 2.6 cm IVSd: 0.84 cm LVIDs: 2.8 cm EDV(Teich): 89.3 ml LVPWd: 0.79 cm ESV(Teich): 29.4 ml EF(Teich): 67.0 % LVOT diam: 2.0 cm LVOT area: 3.0 cm2 Doppler Measurements & Calculations MV E max neris: MV P1/2t max neris: Ao V2 max: LV V1 max P.6 cm/sec 97.7 cm/sec 133.8 cm/sec 3.9 mmHg MV A max neris: MV P1/2t: 47.8 msec Ao max P.2 mmHg LV V1 max: 73.5 cm/sec MVA(P1/2t): 4.6 cm2 BETTY(V,D): 2.2 cm2 99.2 cm/sec MV E/A: 0.91 MV dec slope: 599.2 cm/sec2 MV dec time: 0.21 sec PA V2 max: TR max neris: MV P1/2t-pr_phl: 73.7 cm/sec 224.4 cm/sec 47.8 msec PA max PG: TR max P.1 mmHg 2.2 mmHg Left Ventricle The left ventricle is grossly normal size. There is borderline concentric left ventricular hypertrophy. The left ventricular ejection fraction is normal. Doppler measurements suggest impaired left ventricular relaxation, which is associated with grade I/IV or mild diastolic dysfunction. Wall motion cannot be accurately commented on, but no definite regional wall motion abnormalities noted. Right Ventricle The right ventricle is grossly normal size. There is normal right ventricular wall thickness. The right ventricular systolic function is normal. Atria The right atrium is normal. The left atrial size is normal. Interarterial septum not well visualized and not well dopplered. Cannot comment on ASD/PFO presence. Mitral Valve The mitral valve is grossly normal. There is no mitral valve stenosis. There is a trace to mild amount of mitral regurgitation. Aortic Valve The aortic valve is grossly normal. There is no aortic valve stenosis. No aortic regurgitation is present. Tricuspid Valve The tricuspid valve is not well visualized, but is grossly normal. There is no tricuspid stenosis. There is a trace or physiologic amount of tricuspid regurgitation. Right ventricular systolic pressure is at the upper limits of normal. Pulmonic Valve The pulmonic valve is not well seen, but is grossly normal. Great Vessels The aortic root is not well visualized but is probably normal size. The inferior vena cava was not well visualized. Effusions Minimal pericardial effusion. : WILFREDO CHOUDHURY > Landon Griffin
--- NOTE | 2017-09-20 22:39 | PDOC CONSULTATION ---
Consultation Consult Date: 09/20/17 Attending physician:: WILFREDO CHOUDHURY Consult reason:: Tachycardia History of Present Illness Admission Date/PCP: 09/20/17 15:41 Patient complains of: Palpitations History of Present Illness: JAQUI ORELLANA is a 47 year old male, Patient presents emergency room with complaints of his blood sugar being high. His glucose was found to be 620 on initial presentatation. He does have a known history of type 2 diabetes mellitus but he appears patient has been having difficulty procuring his insulin and his noncompliant because of these. He had taken metformin at one time but he says this caused him to have diarrhea and he had to be taken off it but on the other hand is unable to afford his insulin. His sugar was actually quickly corrected in the emergency room but it appears that in the course of his management he was found to be tachycardic. Patient did appear to be in atrial fibrillation with a rapid ventricular response. Was treated with 1 dose of diltiazem 10 mg IV and it appears he did break and is currently in sinus rhythm. Patient denies any problem such symptoms or any prior diagnosis of atrial fibrillation. There is no fever nausea or vomiting or chest pain. Patient denies any prior history of heart problems. Patient denied any history of angina, CHF, sustained palpitations, syncope, near syncope. He did feel transient palpitations in the ER. Past Medical History Cardiac Medical History: Reports: Hypertension Endocrine Medical History: Reports: Diabetes Mellitus Type 2 GI Medical History: Reports: Gastroesophageal Reflux Disease Past Surgical History Past Surgical History: Reports: Orthopedic Surgery - left hip Social History Information Source: Patient Lives with: Family Smoking Status: Current Every Day Smoker - Advance Directive Resuscitation Status: Full Code Family History Family History: DM, Hypertension Parental Family History Reviewed: Yes Children Family History Reviewed: Yes Sibling(s) Family History Reviewed.: Yes Medication/Allergy Home Medications: No Home Medications 09/20/17 Allergies/Adverse Reactions: No Known Allergies Allergy (Verified 06/05/17 16:27) Review of Systems Review of Systems: Please see history of present illness and past medical history as wall. Constitutional: No fever or chills reported. Head : No recent chronic headaches, recent head injury. Eyes: No recent eye pain, diplopia, redness, discharge, acute visual changes. Ears: No recent chronic ear pain, acute hearing loss, ear discharge. Oral cavity: No recent ulcerations, bleeding, oral cavity discomfort. Neck: No recent acute neck pain reported. Hematologic: No recent easy bruising or bleeding. Lymphatic: No recent lymph node enlargement reported. Cardiovascular system review: See history of present illness. Respiratory system review: No hemoptysis or blood clots in the lungs reported. Mild Shortness of breath on exertion Gastrointestinal system review: Negative for any recent acute hematemesis, melena. Genitourinary system review: No recent acute or chronic hematuria, flank pain, UTI etc. reported. Skin system review: Negative for any recent abnormal bruising, no rash, no pruritus reported. Neurologic: No prior history of strokes, mini strokes, seizure disorder. Psychologic: No history of major psychosis or major depression reported. Musculoskeletal: Minor aches and pains reported. No acute joint swelling reported. Endocrine: No recent polyuria, polydipsia, recent heat or cold intolerance. Physical Exam Vital Signs: Temp Pulse Resp BP Pulse Ox 98.7 F 95 16 126/79 H 100 09/20/17 19:29 09/20/17 19:29 09/20/17 19:29 09/20/17 19:29 09/20/17 19:29 Intake & Output 09/19/17 09/20/17 09/21/17 06:59 06:59 06:59 Intake Total 237 Balance 237 Weight 62.9 kg Exam: GENERAL: well-nourished and in no acute distress. Alert and oriented x3 HEAD: Atraumatic, normocephalic. EYES: Pupils equal round and reactive to light, extraocular movements intact, sclera anicteric, conjunctiva are normal. ENT: TMs normal, nares patent, oropharynx clear without exudates. Moist mucous membranes. No oral ulcerations or bleeding gums noted NECK: supple without lymphadenopathy. Trachea is central. No cervical or axillary lymphadenopathy noted. Carotids are 2+, JVD WNL LUNGS: Respiration seems nonlabored, no significant accessory muscle action noted. Breath sounds clear to auscultation bilaterally and equal noted. No wheezes rales or rhonchi noted. No significant dullness noted on percussion. CHEST: Palpation of the chest wall shows no significant chest wall tenderness. 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 ABDOMEN: Soft, no significant tenderness appreciated, normoactive bowel sounds. No guarding, no rebound. No rigidity noted . No masses appreciated. EXTREMITIES: Pedal pulses are 1-2+, no calf tenderness noted. No clubbing or cyanosis. negative pedal edema noted NEUROLOGICAL: Focused neurological exam showed no significant neurologic deficit. Normal speech, no focal weakness appreciated. PSYCH: Normal mood, normal affect. Judgment and insight within normal limits. SKIN: No significant ecchymosis, skin is noted to be warm. MUSCULOSKELETAL EXAM: No significant acute joint swelling noted. Results EKG Comments: Twelve-lead EKG, one at least shows atrial fibrillation with RVR. Early repolarization changes noted. Impressions: Chest X-Ray 09/20/17 15:31 IMPRESSION: NO ACUTE RADIOGRAPHIC FINDING IN THE CHEST. Assessment & Plan - Diagnosis (1) Atrial fibrillation by electrocardiogram Is this a current diagnosis for this admission?: Yes (2) Hyperglycemia Is this a current diagnosis for this admission?: Yes (3) Non-compliant patient Is this a current diagnosis for this admission?: Yes (4) Type 2 diabetes mellitus Qualifiers: Diabetes mellitus detention insulin use: unspecified detention insulin use status Diabetes mellitus complication status: with unspecified complications Qualified Code(s): E11.8 - Type 2 diabetes mellitus with unspecified complications Is this a current diagnosis for this admission?: Yes - Notes Notes: Atrial fibrillation: Transient. Most likely related to hyperglycemia with treatment with insulin which can cause rapid shift in electrolytes especially intracellular leading to atrial fibrillation. Patient should be advised in compliance. Agree with continuing Cardizem CD at 120 mg p.o. daily. Do not feel there is need for chronic anticoagulation, as this was very transient atrial fibrillation. Hyperglycemia: Agree with maintaining glucose and tight control. Tight control is indicated in this young patient. Type 2 diabetes: We will leave management to the hospitalist. Noncompliance with medication: Patient will benefit from compliance with medications. A 2D echocardiogram was reviewed. It shows normal LVEF. No significant valvular abnormalities noted. Will sign off. Please reconsult if needed. - Time Time Spent: 30 to 50 Minutes - More than 50% of the time spent coordinating care , discussing management plans with involved caregivers. Management plans discussed with involved personnels. Medical decision making was of moderate to high complexity, patient's has multiple comorbidities. Medications reviewed and adjusted accordingly: Yes
--- NOTE | 2017-09-21 00:02 | EKG REPORT ---
SEVERITY:- ABNORMAL ECG - ATRIAL FIBRILLATION, V-RATE 107-153 ST ELEVATION :NON SPECIFIC : Confirmed by: Betty Diaz MD 21-Sep-2017 00:02:21
--- NOTE | 2017-09-21 00:02 | EKG REPORT ---
SEVERITY:- ABNORMAL ECG - SINUS RHYTHM BORDERLINE PROLONGED QT INTERVAL : Confirmed by: Betty Diaz MD 21-Sep-2017 00:01:30
[2017-09-21] MEDS: NORMAL SALINE 1000 ML 1,000 ML IV PRN ×2 (03:35→12:08)
[2017-09-21 05:52] LABS: ANION GAP 10 (5-19); BLOOD UREA NITROGEN 9 mg/dL (7-20); CALCIUM 8.1 mg/dL (8.4-10.2); CARBON DIOXIDE 21 mmol/L (22-30); CHLORIDE 108 mmol/L (98-107); GLUCOSE 188 mg/dL (75-110); HEMATOCRIT 32.2 % (37.9-51.0); MEAN CORPUSCULAR HEMOGLOBIN 22.3 pg (27.0-33.4); MEAN CORPUSCULAR VOLUME 72 fl (80-97); PLATELET COUNT 218 10^3/uL (150-450); POTASSIUM 3.5 mmol/L (3.6-5.0); RED BLOOD COUNT 4.47 10^6/uL (4.35-5.55); RED CELL DISTRIBUTION WIDTH 14.2 % (11.5-14.0); SODIUM 138.5 mmol/L (137-145); TRIGLYCERIDES 100 mg/dL (<150); WHITE BLOOD COUNT 11.7 10^3/uL (4.0-10.5)
[2017-09-21 06:02] LABS: DIRECT LDL 152 mg/dL (<100)
[2017-09-21] MEDS ORDERED: GLYBURIDE 5 MG TABLET PO SCH (08:00)
[2017-09-21] MEDS: INSULIN REG, HUMAN 100 UNIT/ML 3 ML VIAL (PYX) SUBCUT PRN ×2 (08:58→12:08)
[2017-09-21] MEDS: FAMOTIDINE 20 MG TABLET PO SCH (09:01)
[2017-09-21] MEDS: DILTIAZEM HCL 120 MG CAP.SR.24H PO SCH (09:01)
[2017-09-21] MEDS ORDERED: ENOXAPARIN SODIUM INJ 40 MG/0.4 ML DISP.SYRIN SUBCUT SCH (10:00)
--- NOTE | 2017-09-21 14:27 | PDOC DISCHARGE SUMMARY ---
General - Admit/Disc Date/PCP Admission Date/Primary Care Provider: 09/20/17 15:41 Discharge Date: 10/03/17 - Discharge Diagnosis (1) Type 2 diabetes mellitus Is this a current diagnosis for this admission?: Yes (2) Atrial fibrillation by electrocardiogram Is this a current diagnosis for this admission?: Yes (3) Hyperglycemia Is this a current diagnosis for this admission?: Yes (4) Non-compliant patient Is this a current diagnosis for this admission?: Yes - Additional Information Resuscitation Status: Full Code Discharge Diet: Diabetic Discharge Activity: Activity As Tolerated Prescriptions: Insulin Glargine,Hum.rec.anlog [Lantus Insulin 100 Unit/mL] 12 unit SUBCUT QHS # 1 insuln.pen Diltiazem HCl [Cardizem Cd 120 mg Capsule] 120 mg PO DAILY #30 cap.sr.24h Glyburide [Diabeta 5 mg Tablet] 5 mg PO BIDBS 60 Days tablet Home Medications: Diltiazem HCl [Cardizem Cd 120 mg Capsule] 120 mg PO DAILY #30 cap.sr.24h Glyburide [Diabeta 5 mg Tablet] 5 mg PO BIDBS 60 Days tablet 09/21/17 Insulin Glargine,Hum.rec.anlog [Lantus Insulin 100 Unit/mL] 12 unit SUBCUT QHS # 1 insuln.pen 09/21/17 History of Present Illness History of Present Illness: JAQUI ORELLANA is a 47 year old male Patient presents emergency room with complaints of his blood sugar being high. His glucose was found to be 620 on initial presentatation. He does have a known history of type 2 diabetes mellitus but he appears patient has been having difficulty procuring his insulin and his noncompliant because of these. He had taken metformin at one time but he says this caused him to have diarrhea and he had to be taken off it but on the other hand is unable to afford his insulin. His sugar was actually quickly corrected in the emergency room but it appears that in the course of his management he was found to be tachycardic. Patient did appear to be in atrial fibrillation with a rapid ventricular response. Was treated with 1 dose of diltiazem 10 mg IV and it appears he did break and is currently in sinus rhythm. Patient denies any problem such symptoms or any prior diagnosis of atrial fibrillation. There is no fever nausea or vomiting or chest pain Hospital Course Hospital Course: This patient presents emergency room with hypoglycemia. He admitted to not taking his insulin 40. If the last 6 months. He is blood sugar was about 620 on initial presentation. He was started on aggressive intravenous fluid and he also received insulin with improvement in his blood sugar. During the course of his treatment in the emergency room patient went into atrial fibrillation with a rapid ventricular response. Ultimately received 10 mg of Cardizem IV and is controlled his atrial fibrillation and he is remained in sinus rhythm since then. Echocardiogram was done which revealed a grossly intact left ventricular ejection fraction. He has been started on Cardizem. Patient has been counseled extensively on the need to be compliant with his medications. He was started on glyburide as patient states that he is unable to tolerate metformin. He will need further adjustment and evaluation of his insulin and his other medications and has been advised to follow-up at the [facility] in 1 week Patient has remained hemodynamically stable I would no further interventions been planned he is been discharged home. Physical Exam Vital Signs: Temp Pulse Resp BP Pulse Ox 98.5 F 87 17 115/77 100 09/21/17 11:48 09/21/17 12:26 09/21/17 12:26 09/21/17 11:48 09/21/17 12:26 Intake & Output 09/20/17 09/21/17 09/22/17 06:59 06:59 06:59 Intake Total 1459 1000 Output Total 600 Balance 859 1000 Weight 64.8 kg General appearance: PRESENT: no acute distress, thin Head exam: PRESENT: atraumatic, normocephalic Eye exam: PRESENT: EOMI, PERRLA. ABSENT: scleral icterus Ear exam: PRESENT: normal external ear exam Mouth exam: PRESENT: tongue midline Neck exam: ABSENT: carotid bruit, JVD, lymphadenopathy, thyromegaly Respiratory exam: PRESENT: clear to auscultation harvey. ABSENT: rales, rhonchi, wheezes Cardiovascular exam: PRESENT: RRR, +S1, +S2. ABSENT: diastolic murmur, rubs, systolic murmur Pulses: PRESENT: normal dorsalis pedis pul Vascular exam: PRESENT: normal capillary refill GI/Abdominal exam: PRESENT: normal bowel sounds, soft. ABSENT: distended, guarding, mass, organolmegaly, rebound, tenderness Rectal exam: PRESENT: deferred Extremities exam: PRESENT: full ROM. ABSENT: calf tenderness, clubbing, pedal edema Neurological exam: PRESENT: alert, awake, oriented to person, oriented to place , oriented to time, oriented to situation, CN II-XII grossly intact. ABSENT: motor sensory deficit Psychiatric exam: PRESENT: appropriate affect, normal mood. ABSENT: homicidal ideation, suicidal ideation Skin exam: PRESENT: dry, intact, warm. ABSENT: cyanosis, rash Results Laboratory Results: 09/21/17 04:54 09/21/17 04:54 09/21/17 09/21/17 04:54 04:54 WBC 11.7 H RBC 4.47 Hgb 10.0 L D Hct 32.2 L MCV 72 L MCH 22.3 L MCHC 31.0 L RDW 14.2 H Plt Count 218 Sodium 138.5 Potassium 3.5 L Chloride 108 H Carbon Dioxide 21 L Anion Gap 10 BUN 9 Creatinine 0.48 L Est GFR ( Amer) > 60 Est GFR (Non-Af Amer) > 60 Glucose 188 H Calcium 8.1 L Triglycerides 100 Cholesterol 221.90 H LDL Cholesterol Direct 152 H VLDL Cholesterol 20.0 HDL Cholesterol 36 L 09/21/17 04:54 Troponin I < 0.012 Impressions: Chest X-Ray 09/20/17 15:31 IMPRESSION: NO ACUTE RADIOGRAPHIC FINDING IN THE CHEST. Qualifiers - * PATIENT BEING DISCHARGED WITH ANY OF THE FOLLOWING DIAGNOSIS: No Plan Discharge Plan: Extensive discussion had with patient on the need to be compliant with his meds patients and medical instructions. Discussions were also held with the nursing staff as well as social service regarding the procurement of his insulin Time Spent: Greater than 30 Minutes
[2017-09-21 14:34] VITALS: BP 120/83
== END 2017-09-21 15:49 | disposition home or self-care (01) | DRG 639 ==
LOC: ER 07:59 → EH 15:41 → 3W 16:58
PROVIDERS: ADMIT Internal Medicine; ATTEND Internal Medicine
DX: E11.65 Type 2 diabetes mellitus with hyperglycemia (principal); I48.91 Unspecified atrial fibrillation; I10 Essential (primary) hypertension; F17.210 Nicotine dependence, cigarettes, uncomplicated; K21.9 Gastro-esophageal reflux disease without esophagitis; Z83.3 Family history of diabetes mellitus; Z91.14 Patient's other noncompliance with medication regimen; Z59.6 Low income; Z79.84 Long term (current) use of oral hypoglycemic drugs
CPT/HCPCS: 36415; 71045; 80048; 80053; 80061; 80307; 81001; 82550; 82553; 82962; 83735; 84443; 84484; 85025; 85027; 85379; 93005; 93010; 93306; 96361; 96365; 96366; 96375; 99291; J1650; J1815; J3490; J7030; J7120

== ENCOUNTER → 2017-10-10 | Outpatient (CLI) | payer OTHER ==
[2017-10-10 15:53] LABS: ANION GAP 9 (5-19); BLOOD UREA NITROGEN 11 mg/dL (7-20); CALCIUM 9.1 mg/dL (8.4-10.2); CARBON DIOXIDE 28 mmol/L (22-30); CHLORIDE 104 mmol/L (98-107); GLUCOSE 233 mg/dL (75-110); IRON(TIBC) 46.7 ug/dL (49-181); POTASSIUM 4.9 mmol/L (3.6-5.0); SODIUM 141.3 mmol/L (137-145)
[2017-10-15 15:37] LABS: HGB A 72.9 % (96.4-98.8); HGB A2 3.7 % (1.8-3.2); HGB S 23.4 % (0.0); HGB SOLUBILITY RESULT Positive (Negative)
== END ==
LOC: CCC 14:49
DX: D50.9 Iron deficiency anemia, unspecified (principal)
CPT/HCPCS: 36415; 80048; 82728; 83020; 83540; 83550; 84153; 84443

== ENCOUNTER 2018-03-04 08:08 | Emergency (ER) | payer SELFPAY ==
[2018-03-04 09:14] LABS: APPEARANCE,URINE CLEAR; BILIRUBIN,URINE NEGATIVE (NEGATIVE); COLOR,URINE YELLOW; GLUCOSE, URINE NEGATIVE (NEGATIVE); KETONES,URINE NEGATIVE (NEGATIVE); LEUKOCYTE ESTERASE,URINE TRACE (NEGATIVE); NITRITE,URINE NEGATIVE (NEGATIVE); PROTEIN,URINE NEGATIVE (NEGATIVE); URINE SPECIFIC GRAVITY 1.017; UROBILINOGEN,URINE NEGATIVE mg/dL (<2.0)
[2018-03-04 09:21] LABS: ABSOLUTE EOSINOPHILS # (AUTO) 0.1 10^3/uL (0.0-0.6); ABSOLUTE LYMPHOCYTES (AUTO) 1.7 10^3/uL (0.5-4.7); ABSOLUTE MONOCYTES (AUTO) 0.4 10^3/uL (0.1-1.4); ABSOLUTE NEUT (AUTO) 4.2 10^3/uL (1.7-8.2); BASOPHILS % (AUTO) 0.5 % (0-2); EOSINOPHILS % (AUTO) 2.1 % (0-6); HEMATOCRIT 40.7 % (37.9-51.0); HEMOGLOBIN 12.8 g/dL (13.5-17.0); LYMPHOCYTES % (AUTO) 26.9 % (13-45); MEAN CORPUSCULAR HEMOGLOBIN 23.1 pg (27.0-33.4); MEAN CORPUSCULAR HGB CONC 31.4 g/dL (32.0-36.0); MEAN CORPUSCULAR VOLUME 74 fl (80-97); MONOCYTES % (AUTO) 5.7 % (3-13); PLATELET COUNT 249 10^3/uL (150-450); RED BLOOD COUNT 5.54 10^6/uL (4.35-5.55); RED CELL DISTRIBUTION WIDTH 13.9 % (11.5-14.0); SEGMENTED NEUTROPHILS % (AUTO) 64.8 % (42-78); TOTAL CELLS COUNTED % (AUTO) 100 %; WHITE BLOOD COUNT 6.5 10^3/uL (4.0-10.5)
[2018-03-04] MEDS ORDERED: ASPIRIN 81 MG TABLET, CHEWABLE PO ONE (09:22)
--- NOTE | 2018-03-04 09:30 | ER Document Report ---
ED Blood Sugar Problem - General Chief Complaint: High Blood Sugar Stated Complaint: POSSIBLE HIGH SUGAR Time Seen by Provider: 03/04/18 09:13 Primary Care Provider: [facility] [NO LOCAL MD] - Follow up as needed TRAVEL OUTSIDE OF THE [place] IN LAST 30 DAYS: No - HPI Notes: Patient is a 47-year-old male that presents to the emergency department for chief complaint of chest pain and hyperglycemia. Patient states he started having chest pain over his right anterior chest and sternum. He states the pain has been intermittent for the last 2 days. When it is present it lasts for about 45 minutes at a time and is associated with palpitations and diaphoresis. He denies any associated dyspnea. He states that currently he does have some palpitations and chest pain but it is mild. He denies history of cardiac disease in the past. He reports that he is an insul in-dependent diabetic but does not have a home glucometer and has been checking his blood sugars at his [id number]. He states they have been continuing to increase and he is worried that he is hyperglycemic. He also reports blurry vision over the last 6 months. His vision is unchanged today. He has not recently seen ophthalmology. Past Medical History: Diabetes, hyperlipidemia Past Surgical History: Left hip replacement Social History: Daily tobacco, occasional alcohol, denies drug use Family History: Reviewed and noncontributory for presenting illness Allergies: Reviewed, see documented allergy list. REVIEW OF SYSTEMS: CONSTITUTIONAL : No fever No chills diaphoresis No recent illness EENT: vision changes No congestion No sore throat CARDIOVASCULAR: chest pain palpitations RESPIRATORY: No shortness of breath No cough No difficulty breathing GASTROINTESTINAL: No abdominal pain No nausea No vomiting No diarrhea GENITOURINARY: No dysuria No hematuria No difficulty urinating MUSCULOSKELETAL: No back pain No leg pain No arm pain SKIN: No rashes No lesions LYMPHATIC: No swollen, enlarged glands. NEUROLOGICAL: No lightheadedness No headache No weakness No paresthesias PSYCHIATRIC: No anxiety No depression PHYSICAL EXAMINATION: Vital signs reviewed, nursing noted reviewed. GENERAL: Well-appearing, well-nourished and in no acute distress. HEAD: Atraumatic, normocephalic. EYES: Eyes appear normal, extraocular movements intact, sclera anicteric, conjunctiva are normal. ENT: nares patent, oropharynx clear without exudates. Moist mucous membranes. NECK: Normal range of motion, supple without lymphadenopathy LUNGS: Breath sounds clear to auscultation bilaterally and equal. No wheezes rales or rhonchi. HEART: Regular rate and rhythm without murmurs ABDOMEN: Soft, nontender, normoactive bowel sounds. No rebound, guarding, or rigidity. No masses appreciated. EXTREMITIES: Nontender, good range of motion, no pitting or edema. NEUROLOGICAL: No focal neurological deficits. Moves all extremities sponta neously Motor and sensory grossly intact on exam. PSYCH: Normal mood, normal affect. SKIN: Warm, Dry, normal turgor, no rashes or lesions noted on exposed skin - Related Data Allergies/Adverse Reactions: No Known Allergies Allergy (Verified 03/04/18 08:15) Past Medical History - Social History Smoking Status: Current Every Day Smoker Family History: DM, Hypertension - Past Medical History Cardiac Medical History: Reports: Hx Hypertension Endocrine Medical History: Reports: Hx Diabetes Mellitus Type 2 Renal/ Medical History: Denies: Hx Peritoneal Dialysis GI Medical History: Reports: Hx Gastroesophageal Reflux Disease Past Surgical History: Reports: Hx Orthopedic Surgery - left hip - Immunizations Hx Diphtheria, Pertussis, Tetanus Vaccination: Yes - 2008 Physical Exam - Vital signs Vitals: Temp Pulse Resp BP Pulse Ox 98.3 F 88 18 139/83 H 100 03/04/18 08:20 03/04/18 08:20 03/04/18 08:20 03/04/18 08:20 03/04/18 08:20 Course - Re-evaluation Re-evalutation: 03/04/18 09:37 Vitals reviewed. Nursing notes reviewed. Patient given aspirin for his chest pain. His EKG appears unchanged from 09/20/17 03/04/18 13:11 Patient's initial and delta troponins are negative. His heart score is 3 putting him at a low risk for major adverse cardiac event. Currently do not suspect acute ACS. He has remained hemodynamically stable. The remainder of his workup is unremarkable. Encouraged him to see his primary care doctor for close reevaluation in the next few days. He will return for any new or worsening symptoms. He is in agreement with this plan and stable at discharge. Laboratory 03/04/18 03/04/18 03/04/18 08:16 08:53 08:53 WBC 6.5 RBC 5.54 Hgb 12.8 L Hct 40.7 MCV 74 L MCH 23.1 L MCHC 31.4 L RDW 13.9 Plt Count 249 Seg Neutrophils % 64.8 Lymphocytes % 26.9 Monocytes % 5.7 Eosinophils % 2.1 Basophils % 0.5 Absolute Neutrophils 4.2 Absolute Lymphocytes 1.7 Absolute Monocytes 0.4 Absolute Eosinophils 0.1 Absolute Basophils 0.0 Sodium 139.8 Potassium 4.6 Chloride 101 Carbon Dioxide 33 H Anion Gap 6 BUN 10 Creatinine 0.64 Est GFR ( Amer) > 60 Est GFR (Non-Af Amer) > 60 Glucose 189 H POC Glucose 180 H Calcium 9.3 Total Bilirubin 0.7 Direct Bilirubin 0.3 Neonat Total Bilirubin Not Reportable Neonat Direct Bilirubin Not Reportable Neonat Indirect Bili Not Reportable AST 26 ALT 12 L Alkaline Phosphatase 93 Troponin I Total Protein 8.1 Albumin 4.6 Urine Color Urine Appearance Urine pH Ur Specific [place] Urine Protein Urine Glucose (UA) Urine Ketones Urine Blood Urine Nitrite Urine Bilirubin Urine Urobilinogen Ur Leukocyte Esterase Urine WBC (Auto) Urine RBC (Auto) Urine Mucus (Auto) Urine Ascorbic Acid 03/04/18 03/04/18 03/04/18 08:53 08:53 08:59 WBC RBC Hgb Hct MCV MCH MCHC RDW Plt Count Seg Neutrophils % Lymphocytes % Monocytes % Eosinophils % Basophils % Absolute Neutrophils Absolute Lymphocytes Absolute Monocytes Absolute Eosinophils Absolute Basophils Sodium Potassium Chloride Carbon Dioxide Anion Gap BUN Creatinine Est GFR ( Amer) Est GFR (Non-Af Amer) Glucose POC Glucose 202 H Calcium Total Bilirubin Direct Bilirubin Neonat Total Bilirubin Neonat Direct Bilirubin Neonat Indirect Bili AST ALT Alkaline Phosphatase Troponin I < 0.012 Total Protein Albumin Urine Color YELLOW Urine Appearance CLEAR Urine pH 6.0 Ur Specific [place] 1.017 Urine Protein NEGATIVE Urine Glucose (UA) NEGATIVE Urine Ketones NEGATIVE Urine Blood NEGATIVE Urine Nitrite NEGATIVE Urine Bilirubin NEGATIVE Urine Urobilinogen NEGATIVE Ur Leukocyte Esterase TRACE H Urine WBC (Auto) 1 Urine RBC (Auto) 0 Urine Mucus (Auto) RARE Urine Ascorbic Acid 20 H 03/04/18 12:05 WBC RBC Hgb Hct MCV MCH MCHC RDW Plt Count Seg Neutrophils % Lymphocytes % Monocytes % Eosinophils % Basophils % Absolute Neutrophils Absolute Lymphocytes Absolute Monocytes Absolute Eosinophils Absolute Basophils Sodium Potassium Chloride Carbon Dioxide Anion Gap BUN Creatinine Est GFR ( Amer) Est GFR (Non-Af Amer) Glucose POC Glucose Calcium Total Bilirubin Direct Bilirubin Neonat Total Bilirubin Neonat Direct Bilirubin Neonat Indirect Bili AST ALT Alkaline Phosphatase Troponin I < 0.012 Total Protein Albumin Urine Color Urine Appearance Urine pH Ur Specific [place] Urine Protein Urine Glucose (UA) Urine Ketones Urine Blood Urine Nitrite Urine Bilirubin Urine Urobilinogen Ur Leukocyte Esterase Urine WBC (Auto) Urine RBC (Auto) Urine Mucus (Auto) Urine Ascorbic Acid Chest X-Ray 03/04/18 09:22 IMPRESSION: NO ACUTE RADIOGRAPHIC FINDING IN THE CHEST. - Vital Signs Vital signs: Temp Pulse Resp BP Pulse Ox 98.3 F 88 17 151/86 H 100 03/04/18 08:20 03/04/18 08:20 03/04/18 09:26 03/04/18 09:26 03/04/18 09:26 - Laboratory Result Diagrams: 03/04/18 08:53 03/04/18 08:53 Laboratory results interpreted by me: 03/04/18 03/04/18 03/04/18 08:16 08:53 08:53 Hgb 12.8 L MCV 74 L MCH 23.1 L MCHC 31.4 L Carbon Dioxide 33 H Glucose 189 H POC Glucose 180 H ALT 12 L Ur Leukocyte Esterase Urine Ascorbic Acid 03/04/18 03/04/18 08:53 08:59 Hgb MCV MCH MCHC Carbon Dioxide Glucose POC Glucose 202 H ALT Ur Leukocyte Esterase TRACE H Urine Ascorbic Acid 20 H - EKG Interpretation by Me Additional EKG results interpreted by me: 03/04/18 09:37 Interpreted by myself [id number]: Normal sinus rhythm, rate 81, normal axis, no ectopy, J-point elevation V3 through V6, no STEMI, no change from 09/20/17 Discharge - Discharge Clinical Impression: Hyperglycemia Chest pain Qualifiers: Chest pain type: unspecified Qualified Code(s): R07.9 - Chest pain, unspecified Condition: Stable Disposition: HOME, SELF-CARE Instructions: Chest Pain of Unclear Cause ([facility]) Additional Instructions: Please return to the emergency department if you have any worsening, or concern of your symptoms. Please return to the emergency department if you develop chest pain, difficulty breathing, severe abdominal pain, or ongoing vomiting. Please follow-up with your primary care physician in 2-3 days and any other recommended physicians. If prescribed, take all medications as directed. If you have any questions or concerns do not hesitate to return the emergency department for evaluation. Call your primary care doctor to obtain a new glucometer at home so we were able to check your blood sugars daily while on insulin Referrals: [facility] [NO LOCAL MD] - Follow up in 3-5 days
[2018-03-04 09:35] LABS: ALANINE AMINOTRANSFERASE 12 U/L (21-72); ALBUMIN 4.6 g/dL (3.5-5.0); ALKALINE PHOSPHATASE 93 U/L (38-126); ANION GAP 6 (5-19); ASPARTATE AMINO TRANSFERASE 26 U/L (17-59); BILIRUBIN,DIRECT 0.3 mg/dL (0.0-0.4); BILIRUBIN,TOTAL 0.7 mg/dL (0.2-1.3); BLOOD UREA NITROGEN 10 mg/dL (7-20); CALCIUM 9.3 mg/dL (8.4-10.2); CARBON DIOXIDE 33 mmol/L (22-30); CHLORIDE 101 mmol/L (98-107); GLUCOSE 189 mg/dL (75-110); POTASSIUM 4.6 mmol/L (3.6-5.0); SODIUM 139.8 mmol/L (137-145); TOTAL PROTEIN 8.1 g/dL (6.3-8.2)
--- NOTE | 2018-03-04 10:14 | RADIOLOGY REPORT (SQ) ---
EXAM DESCRIPTION: CHEST SINGLE VIEW COMPLETED DATE/TIME: 03/04/2018 10:04 am REASON FOR STUDY: chest pain COMPARISON: 09/29/2012 EXAM PARAMETERS: NUMBER OF VIEWS: One view. TECHNIQUE: Single frontal radiographic view of the chest acquired. RADIATION DOSE: NA LIMITATIONS: None. FINDINGS: LUNGS AND PLEURA: No opacities, masses or pneumothorax. No pleural effusion. MEDIASTINUM AND HILAR STRUCTURES: No masses. Contour normal. HEART AND VASCULAR STRUCTURES: Heart normal in size. Normal vasculature. BONES: Scoliosis. HARDWARE: None in the chest. OTHER: No other significant finding. IMPRESSION: NO ACUTE RADIOGRAPHIC FINDING IN THE CHEST. TECHNICAL DOCUMENTATION: JOB ID: [id number] [employer]- All Rights Reserved Reading location - IP/workstation name: [email or web address]
[2018-03-04 13:59] VITALS: BP 141/92
--- NOTE | 2018-03-04 19:34 | EKG REPORT ---
SEVERITY:- NORMAL ECG - SINUS RHYTHM : Confirmed by: Betty Diaz MD 04-Mar-2018 19:34:01
== END 2018-03-04 14:00 | disposition home or self-care (01) ==
LOC: ER 08:08
DX: R07.9 Chest pain, unspecified (principal); E11.65 Type 2 diabetes mellitus with hyperglycemia; I10 Essential (primary) hypertension; F17.200 Nicotine dependence, unspecified, uncomplicated; Z96.642 Presence of left artificial hip joint
CPT/HCPCS: 36415; 71045; 80053; 81001; 82962; 84484; 85025; 93005; 93010; 99285

== ENCOUNTER 2018-07-30 07:26 | Emergency (ER) | payer SELFPAY ==
[2018-07-30 08:36] LABS: ABSOLUTE EOSINOPHILS # (AUTO) 0.4 10^3/uL (0.0-0.6); ABSOLUTE LYMPHOCYTES (AUTO) 1.5 10^3/uL (0.5-4.7); ABSOLUTE MONOCYTES (AUTO) 0.4 10^3/uL (0.1-1.4); ABSOLUTE NEUT (AUTO) 5.4 10^3/uL (1.7-8.2); BASOPHILS % (AUTO) 0.4 % (0-2); EOSINOPHILS % (AUTO) 4.7 % (0-6); HEMATOCRIT 43.4 % (37.9-51.0); HEMOGLOBIN 13.9 g/dL (13.5-17.0); LYMPHOCYTES % (AUTO) 19.5 % (13-45); MEAN CORPUSCULAR HEMOGLOBIN 22.7 pg (27.0-33.4); MEAN CORPUSCULAR VOLUME 71 fl (80-97); MONOCYTES % (AUTO) 5.6 % (3-13); PLATELET COUNT 288 10^3/uL (150-450); RED CELL DISTRIBUTION WIDTH 13.6 % (11.5-14.0); SEGMENTED NEUTROPHILS % (AUTO) 69.8 % (42-78); TOTAL CELLS COUNTED % (AUTO) 100 %; WHITE BLOOD COUNT 7.7 10^3/uL (4.0-10.5)
[2018-07-30 08:54] LABS: VENOUS BLOOD BASE EXCESS 4.9 mmol/L; VENOUS BLOOD HCO3 31.4 mmol/L (20-32); VENOUS BLOOD PCO2 54.1 mmHg (35-63); VENOUS BLOOD PH 7.38 (7.30-7.42)
[2018-07-30 09:00] LABS: ALANINE AMINOTRANSFERASE 26 U/L (21-72); ALBUMIN 4.9 g/dL (3.5-5.0); ALKALINE PHOSPHATASE 145 U/L (38-126); ANION GAP 12 (5-19); ASPARTATE AMINO TRANSFERASE 20 U/L (17-59); BILIRUBIN,DIRECT 0.3 mg/dL (0.0-0.4); BILIRUBIN,TOTAL 0.7 mg/dL (0.2-1.3); BLOOD UREA NITROGEN 16 mg/dL (7-20); CALCIUM 10.3 mg/dL (8.4-10.2); CARBON DIOXIDE 29 mmol/L (22-30); CHLORIDE 95 mmol/L (98-107); POTASSIUM 5.2 mmol/L (3.6-5.0); SODIUM 136.1 mmol/L (137-145); TOTAL PROTEIN 8.2 g/dL (6.3-8.2)
[2018-07-30 09:02] LABS: APPEARANCE,URINE CLEAR; BILIRUBIN,URINE NEGATIVE (NEGATIVE); COLOR,URINE YELLOW; GLUCOSE, URINE >=500 mg/dL (NEGATIVE); KETONES,URINE 20 mg/dL (NEGATIVE); LEUKOCYTE ESTERASE,URINE NEGATIVE (NEGATIVE); NITRITE,URINE NEGATIVE (NEGATIVE); PROTEIN,URINE 100 mg/dL (NEGATIVE); URINE SPECIFIC GRAVITY 1.028; UROBILINOGEN,URINE NEGATIVE mg/dL (<2.0)
[2018-07-30 09:15] LABS: GLUCOSE 481 mg/dL (75-110)
[2018-07-30] MEDS ORDERED: INSULIN REG, HUMAN 100 UNIT/ML 3 ML VIAL (PYX) SUBCUT ONE ×2 (09:16→10:46)
[2018-07-30] MEDS ORDERED: GABAPENTIN 100 MG CAPSULE PO ONE (09:51)
[2018-07-30 11:59] VITALS: BP 127/83
--- NOTE | 2018-07-30 16:44 | ER Document Report ---
Entered by BRIANA ROTHMAN SCRIBE 07/30/18 0859 Acting as scribe for:MARIA EUGENIA SANDOVAL DO ED Blood Sugar Problem - General Chief Complaint: High Blood Sugar Stated Complaint: BLOOD SUGAR ISSUES Time Seen by Provider: 07/30/18 08:39 Primary Care Provider: CORBIN CLEMENT DO [NO LOCAL MD] - Follow up as needed Mode of Arrival: Ambulatory Information source: Patient Notes: 48-year-old male who presents to the emergency department today for complaints of uncontrolled blood sugars. Patient states he has bilateral leg and foot numbness and blurry vision which is somewhat chronic for him as he has been off of his diabetes medications for a significant period of time. Patient states the last time he took his NovoLog and Lantus was x3 months ago although after reviewing patient records he frequently is seen here stating he has been off of his medications for an extended amount of time. Patient denies any fevers, vomiting, or diarrhea. TRAVEL OUTSIDE OF THE [place] IN LAST 30 DAYS: No - Related Data Allergies/Adverse Reactions: No Known Allergies Allergy (Verified 03/04/18 08:15) Past Medical History - General Information source: Patient - Social History Smoking Status: Current Every Day Smoker Cigarette use (# per day): Yes Frequency of alcohol use: Occasional Drug Abuse: None Lives with: Family Family History: Reviewed & Not Pertinent, DM, Hypertension Patient has suicidal ideation: No Patient has homicidal ideation: No - Past Medical History Cardiac Medical History: Reports: Hx Hypertension Endocrine Medical History: Reports: Hx Diabetes Mellitus Type 2 GI Medical History: Reports: Hx Gastroesophageal Reflux Disease Past Surgical History: Reports: Hx Orthopedic Surgery - left hip - Immunizations Hx Diphtheria, Pertussis, Tetanus Vaccination: Yes - 2008 Review of Systems - Review of Systems Constitutional: denies: Fever EENT: See HPI, Blurred vision Cardiovascular: No symptoms reported Respiratory: No symptoms reported Gastrointestinal: denies: Diarrhea, Vomiting Genitourinary: No symptoms reported Male Genitourinary: No symptoms reported Musculoskeletal: No symptoms reported Skin: No symptoms reported Hematologic/Lymphatic: No symptoms reported Neurological/Psychological: See HPI, Numbness - legs/feet -: Yes All other systems reviewed and negative Physical Exam - Vital signs Vitals: Temp Pulse Resp BP Pulse Ox 98.4 F 124 H 18 120/71 97 07/30/18 07:30 07/30/18 07:30 07/30/18 07:30 07/30/18 07:30 07/30/18 07:30 - Notes Notes: PHYSICAL EXAM GENERAL: Alert, interacts well. No acute distress. HEAD: Normocephalic, atraumatic. EYES: Pupils equal, round, and reactive to light. Extraocular movements intact. ENT: Oral mucosa moist, tongue midline. NECK: Full range of motion. Supple. Trachea midline. LUNGS: Clear to auscultation bilaterally, no wheezes, rales, or rhonchi. No respiratory distress. HEART: Regular rate and rhythm. No murmurs, gallops, or rubs. ABDOMEN: Soft, non-tender. Non-distended. Bowel sounds present in all 4 quadrants. No guarding, rigidity, or rebound. EXTREMITIES: Moves all 4 extremities spontaneously. No edema, radial and dorsalis pedis pulses 2/4 bilaterally. No cyanosis. NEUROLOGICAL: Alert and oriented x3. Normal speech. 5/5 great toe raising strength bilaterally. PSYCH: Normal affect, normal mood. SKIN: Warm, dry, normal turgor. Well healed scar over the right posterior axillary line. Course - Re-evaluation Re-evalutation: 07/30/18 11:29 CBC unremarkable, venous blood gas unremarkable, CMP shows slightly elevated potassium at 5.2 and pseudohyponatremia at 136.1, glucose elevated at 481, decreased to 389 and then 350, no other insulin bolus is given, alkaline phosphatase mildly elevated at 145, CK mildly elevated at 172, urinalysis shows 20 of ketones and 500 glucose, no evidence of diabetic ketoacidosis as the CO2 is normal and there is no elevated anion gap. Patient has been noncompliant with his insulin, has not taken it for 3 months. Patient will be given a prescription for Lantus and NovoLog. [facility] will get [facility] filled at the [facility]. Patient's larger concern was the burning tingling pain in his feet, this is consistent with paresthesias from neuropathy. Patient will be treated with Neurontin. No signs of stroke or acute nerve impingement. Discharged home. - Vital Signs Vital signs: Temp Pulse Resp BP Pulse Ox 98.5 F 124 H 18 127/83 H 98 07/30/18 11:56 07/30/18 07:30 07/30/18 11:56 07/30/18 11:56 07/30/18 11:56 - Laboratory Result Diagrams: 07/30/18 08:03 07/30/18 08:03 Laboratory results interpreted by me: 07/30/18 07/30/18 07/30/18 08:03 08:03 08:03 RBC 6.10 H MCV 71 L MCH 22.7 L Sodium 136.1 L Potassium 5.2 H Chloride 95 L Glucose 481 H* POC Glucose Calcium 10.3 H Alkaline Phosphatase 145 H Creatine Kinase Urine Protein 100 H Urine Glucose (UA) >=500 H Urine Ketones 20 H 07/30/18 07/30/18 07/30/18 08:03 08:53 10:37 RBC MCV MCH Sodium Potassium Chloride Glucose POC Glucose 389 H 350 H Calcium Alkaline Phosphatase Creatine Kinase 172 H Urine Protein Urine Glucose (UA) Urine Ketones - EKG Interpretation by Me Additional EKG results interpreted by me: 07/30/18 11:30 EKG shows sinus rhythm rate 98, normal axis, normal intervals, no ST segment depressions, there is ST segment elevation noted from lead V3 through the 5, no significant change from prior EKG on 03/04/2018, this consistent with early repolarization per my interpretation. Discharge - Discharge Clinical Impression: Non-compliant patient, Diabetic peripheral neuropathy associated with type 2 diabetes mellitus Type 2 diabetes mellitus Qualifiers: Diabetes mellitus detention insulin use: with rat exterminator use Diabetes mellitus complication status: with hyperglycemia Qualified Code(s): E11.65 - Type 2 diabetes mellitus with hyperglycemia; Z79.4 - ferry terminal agent (current) use of insulin Condition: Stable Disposition: HOME, SELF-CARE Additional Instructions: Neuropathy Your symptoms are due to neuropathy. Neuropathy is nerve damage. There are many causes, including diabetes, immune disease, alcohol, blood vessel disease, and vitamin deficiency. The usual symptoms are pain and numbness. Neuropathy can occur anywhere, but it's most likely in the "longest" nerves. That's why the feet are most often affected. Sometimes the nerve damage can heal. But if the symptoms have lasted more than a few months, the damage is permanent. To avoid further damage, treat your underlying health problems carefully. If you have diabetes, keep the blood sugar as normal as possible. Avoid alcohol. Treat high blood pressure and high cholesterol. Treating chronic pain can be a problem. Obviously, you don't want to become addicted to pain medicine. Work closely with your doctor on pain management. Your options include antiinflammatory medicine, anti seizure medicine, antidepressants, and pain clinic management. Contact the doctor if there is a significant change. Your neuropathy is likely coming from your diabetes. It will continue to get worse if you do not take your insulin as directed. I have written you refills for your insulin however it is very important that you follow-up with a primary care physician to have these refilled and adjusted better than I can do from the emergency department. Prescriptions: Insulin Glargine,Hum.rec.anlog [Lantus Insulin 100 Unit/1 ml 10 ml] 15 unit SUBCUT QHS 30 Days unit Gabapentin [Neurontin 100 mg Capsule] 100 mg PO ASDIR #60 capsule Insulin Aspart [Novolog Insulin 100 Unit/1 ml 10 ml] 0 unit SUBCUT .SLD SCALE #10 ml Forms: Return to Work Referrals: CORBIN CLEMENT DO [NO LOCAL MD] - Follow up as needed I personally performed the services described in the documentation, reviewed and edited the documentation which was dictated to the scribe in my presence, and it accurately records my words and actions.
--- NOTE | 2018-07-30 20:39 | EKG REPORT ---
SEVERITY:- NORMAL ECG - SINUS RHYTHM ST ELEV, PROBABLE NORMAL EARLY REPOL PATTERN : Confirmed by: Betty Diaz MD 30-Jul-2018 20:38:19
== END 2018-07-30 11:59 | disposition home or self-care (01) ==
LOC: ER 07:26
DX: Z91.14 Patient's other noncompliance with medication regimen (principal); E11.40 Type 2 diabetes mellitus with diabetic neuropathy, unspecified; E11.65 Type 2 diabetes mellitus with hyperglycemia; Z79.4 Long term (current) use of insulin; R20.0 Anesthesia of skin; H53.8 Other visual disturbances; F17.210 Nicotine dependence, cigarettes, uncomplicated; I10 Essential (primary) hypertension
CPT/HCPCS: 93005; 99283; 36415; 82553; 82962; 82550; 85025; 80053; 81001; 82803; 93010; J1815

== ENCOUNTER 2018-09-03 12:35 | Emergency (ER) | payer SELFPAY ==
--- NOTE | 2018-09-03 13:22 | ER Document Report ---
ED Medical Screen (RME) - General Chief Complaint: Blurred Vision Stated Complaint: BLURRED VISION Time Seen by Provider: 09/03/18 13:13 Mode of Arrival: Ambulatory Information source: Patient Notes: 48-year-old male presents to ED for complaint of blurred vision for about a month and muscle cramping since Saturday. 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 He states he is a diabetic his sugar usually runs between 305-540. He states he does not check his sugar like he is supposed to. He states he does smoke 3 or 4 cigarettes a day drinks about monthly states he has not had a drink in a month and does not do any drugs. He is alert oriented respirations regular and unlabored speaking in full sentences. I have greeted and performed a rapid initial assessment of this patient. A comprehensive ED assessment and evaluation of the patient, analysis of test results and completion of medical decision making process will be conducted by an additional ED providers. Dictation of this chart was performed using voice recognition software; therefore, there may be some unintended grammatical errors. TRAVEL OUTSIDE OF THE [place] IN LAST 30 DAYS: No - Related Data Allergies/Adverse Reactions: No Known Allergies Allergy (Verified 09/03/18 12:35) Past Medical History - Past Medical History Cardiac Medical History: Reports: Hx Hypertension Endocrine Medical History: Reports: Hx Diabetes Mellitus Type 2 Renal/ Medical History: Denies: Hx Peritoneal Dialysis GI Medical History: Reports: Hx Gastroesophageal Reflux Disease Past Surgical History: Reports: Hx Orthopedic Surgery - left hip - Immunizations Hx Diphtheria, Pertussis, Tetanus Vaccination: Yes - 2008 Physical Exam - Vital signs Vitals: Temp Pulse Resp BP Pulse Ox 97.8 F 103 H 16 111/83 98 09/03/18 13:00 09/03/18 13:00 09/03/18 13:00 09/03/18 13:00 09/03/18 13:00 Course - Vital Signs Vital signs: Temp Pulse Resp BP Pulse Ox 97.8 F 103 H 16 111/83 98 09/03/18 13:00 09/03/18 13:00 09/03/18 13:00 09/03/18 13:00 09/03/18 13:00
[2018-09-03] MEDS: NORMAL SALINE 1000 ML 1,000 ML IV PRN ×2 (14:03→15:32)
[2018-09-03 14:05] LABS: VENOUS BLOOD BASE EXCESS 5.2 mmol/L; VENOUS BLOOD HCO3 32.2 mmol/L (20-32); VENOUS BLOOD PCO2 58.1 mmHg (35-63); VENOUS BLOOD PH 7.36 (7.30-7.42)
[2018-09-03 14:06] LABS: ABSOLUTE EOSINOPHILS # (AUTO) 0.3 10^3/uL (0.0-0.6); ABSOLUTE MONOCYTES (AUTO) 0.5 10^3/uL (0.1-1.4); BASOPHILS % (AUTO) 0.4 % (0-2); EOSINOPHILS % (AUTO) 4.4 % (0-6); HEMATOCRIT 40.2 % (37.9-51.0); HEMOGLOBIN 12.7 g/dL (13.5-17.0); LYMPHOCYTES % (AUTO) 25.4 % (13-45); MEAN CORPUSCULAR HEMOGLOBIN 22.5 pg (27.0-33.4); MEAN CORPUSCULAR HGB CONC 31.6 g/dL (32.0-36.0); MEAN CORPUSCULAR VOLUME 71 fl (80-97); MONOCYTES % (AUTO) 6.6 % (3-13); PLATELET COUNT 280 10^3/uL (150-450); RED BLOOD COUNT 5.64 10^6/uL (4.35-5.55); RED CELL DISTRIBUTION WIDTH 13.4 % (11.5-14.0); SEGMENTED NEUTROPHILS % (AUTO) 63.2 % (42-78); TOTAL CELLS COUNTED % (AUTO) 100 %; WHITE BLOOD COUNT 7.9 10^3/uL (4.0-10.5)
[2018-09-03 14:12] LABS: APPEARANCE,URINE CLEAR; BILIRUBIN,URINE NEGATIVE (NEGATIVE); GLUCOSE, URINE >=500 mg/dL (NEGATIVE); KETONES,URINE 20 mg/dL (NEGATIVE); LEUKOCYTE ESTERASE,URINE NEGATIVE (NEGATIVE); NITRITE,URINE NEGATIVE (NEGATIVE); PROTEIN,URINE NEGATIVE (NEGATIVE); UROBILINOGEN,URINE NEGATIVE mg/dL (<2.0)
[2018-09-03 14:13] LABS: COLOR,URINE STRAW
[2018-09-03 14:21] LABS: ALANINE AMINOTRANSFERASE 24 U/L (21-72); ALBUMIN 4.4 g/dL (3.5-5.0); ALKALINE PHOSPHATASE 131 U/L (38-126); ANION GAP 14 (5-19); ASPARTATE AMINO TRANSFERASE 17 U/L (17-59); BILIRUBIN,DIRECT 0.3 mg/dL (0.0-0.4); BILIRUBIN,TOTAL 0.5 mg/dL (0.2-1.3); BLOOD UREA NITROGEN 11 mg/dL (7-20); CALCIUM 9.3 mg/dL (8.4-10.2); CARBON DIOXIDE 28 mmol/L (22-30); CHLORIDE 89 mmol/L (98-107); CREATINE KINASE 71 U/L (55-170); POTASSIUM 4.5 mmol/L (3.6-5.0); TOTAL PROTEIN 7.4 g/dL (6.3-8.2)
[2018-09-03 14:53] LABS: GLUCOSE 683 mg/dL (75-110)
[2018-09-03] MEDS ORDERED: INSULIN REG, HUMAN 100 UNIT/ML 3 ML VIAL (PYX) IV ONE (18:08)
[2018-09-03] MEDS ORDERED: METFORMIN HCL 500 MG TABLET PO ONE (18:12)
--- NOTE | 2018-09-03 18:12 | ER Document Report ---
ED General - General Chief Complaint: Blurred Vision Stated Complaint: BLURRED VISION Time Seen by Provider: 09/03/18 13:13 Mode of Arrival: Ambulatory Notes: 48-year-old male with large part chief complaint of increased urination, blurred vision and not feeling well. Patient has diabetes. Has not been very compliant recently. In and out of jobs. Has not been able to see his doctor. Has been checking his blood sugar at home and it has been reading high. Denies any chest pain. No fever. No chest discomfort or other symptoms other than blurred vision, increased frequency of urination and increased thirst. TRAVEL OUTSIDE OF THE [place] IN LAST 30 DAYS: No - HPI Onset: Last week Onset/Duration: Gradual, Constant Quality of pain: No pain Severity: Moderate Pain Level: Denies Associated symptoms: Weakness, Other - Polyuria, polydipsia - Related Data Allergies/Adverse Reactions: No Known Allergies Allergy (Verified 09/03/18 12:35) Past Medical History - General Information source: Patient - Social History Smoking Status: Current Every Day Smoker Chew tobacco use (# tins/day): No Frequency of alcohol use: Occasional Drug Abuse: None Family History: Reviewed & Not Pertinent, DM, Hypertension Patient has suicidal ideation: No Patient has homicidal ideation: No - Past Medical History Cardiac Medical History: Reports: Hx Hypertension Endocrine Medical History: Reports: Hx Diabetes Mellitus Type 2 Renal/ Medical History: Denies: Hx Peritoneal Dialysis GI Medical History: Reports: Hx Gastroesophageal Reflux Disease Past Surgical History: Reports: Hx Orthopedic Surgery - left hip - Immunizations Hx Diphtheria, Pertussis, Tetanus Vaccination: Yes - 2008 Review of Systems - Review of Systems Notes: Constitutional: denies: Chills, Diaphoresis, Fever, Malaise, +Weakness EENT: denies: Eye discharge, Tearing, Double vision, Nose congestion, Nose discharge, Throat swelling, Mouth pain +Blurred vision, Cardiovascular: denies: Palpitations, Heart racing, Orthopnea, Dyspnea, Chest pain Respiratory: denies: Cough, Hurts to breathe, Wheezing, Shortness of breath Gastrointestinal: denies: Abdominal pain, Diarrhea, Nausea, Vomiting, Black stools, bright red blood in stool Genitourinary: denies: -Burning, -Dysuria, -Discharge, +Frequency, -Flank pain, -Hematuria Musculoskeletal: denies: Joint pain, Joint swelling, Muscle pain, Muscle stiffness, back pain Hematologic/Lymphatic: denies: Anemia, Easy bleeding, Easy bruising, Blood clots Neurological/Psychological: denies: Confusion, Dementia, Depression, Loss of consciousness Skin: No lesions, no masses, no skin breakdown, no abscesses Physical Exam - Vital signs Vitals: Temp Pulse Resp BP Pulse Ox 97.8 F 103 H 16 111/83 98 09/03/18 13:00 09/03/18 13:00 09/03/18 13:00 09/03/18 13:00 09/03/18 13:00 Interpretation: Tachycardic - General General appearance: Appears well, Alert - HEENT Head: Normocephalic, Atraumatic Eyes: Normal Pupils: PERRL - Respiratory Respiratory status: No respiratory distress Chest status: Nontender Breath sounds: Normal Chest palpation: Normal - Cardiovascular Rhythm: Tachycardia Heart sounds: Normal auscultation Murmur: No - Abdominal Inspection: Normal Distension: No distension Bowel sounds: Normal Tenderness: Nontender Organomegaly: No organomegaly - Back Back: Normal, Nontender - Extremities General upper extremity: Normal inspection, Nontender, Normal color, Normal ROM, Normal temperature General lower extremity: Normal inspection, Nontender, Normal color, Normal ROM, Normal temperature, Normal weight bearing. No: Luisa's sign - Neurological Neuro grossly intact: Yes Cognition: Normal Orientation: AAOx4 [place] Coma Scale Eye Opening: Spontaneous [place] Coma Scale Verbal: Oriented [place] Coma Scale Motor: Obeys Commands [place] Coma Scale Total: 15 Speech: Normal Motor strength normal: LUE, RUE, LLE, RLE Sensory: Normal - Psychological Associated symptoms: Normal affect, Normal mood - Skin Skin Temperature: Warm Skin Moisture: Dry Skin Color: Normal Course - Re-evaluation Re-evalutation: 09/03/18 20:03 Patient's blood sugar was high. Over 600. Slight elevation in ST segments however reviewed prior EKGs shows the same. Likely early re-pole. Denies any chest pain. Troponin was negative so I am not necessarily concerned about that. Begin treating his glucose aggressively with IV fluids and insulin. He was not acidotic. Patient does have uncontrolled diabetes with hemoglobin A1c of 14. I am going to recommend that he follow back up with the [facility]. He needs to be back on his insulin and Glucophage. Patient is feeling much better at this time and most of the symptoms have resolved so comfortable discharging. Laboratory 09/03/18 09/03/18 09/03/18 13:35 13:35 13:35 WBC 7.9 RBC 5.64 H Hgb 12.7 L Hct 40.2 MCV 71 L MCH 22.5 L MCHC 31.6 L RDW 13.4 Plt Count 280 Seg Neutrophils % 63.2 Lymphocytes % 25.4 Monocytes % 6.6 Eosinophils % 4.4 Basophils % 0.4 Absolute Neutrophils 5.0 Absolute Lymphocytes 2.0 Absolute Monocytes 0.5 Absolute Eosinophils 0.3 Absolute Basophils 0.0 VBG pH 7.36 VBG pCO2 58.1 VBG HCO3 32.2 H VBG Base Excess 5.2 Sodium 130.7 L Potassium 4.5 Chloride 89 L Carbon Dioxide 28 Anion Gap 14 BUN 11 Creatinine 0.76 Est GFR ( Amer) > 60 Est GFR (Non-Af Amer) > 60 Glucose 683 H* Hemoglobin A1c % Calcium 9.3 Magnesium Total Bilirubin 0.5 Direct Bilirubin 0.3 Neonat Total Bilirubin Not Reportable Neonat Direct Bilirubin Not Reportable Neonat Indirect Bili Not Reportable AST 17 ALT 24 Alkaline Phosphatase 131 H Creatine Kinase 71 Troponin I Total Protein 7.4 Albumin 4.4 TSH Urine Color Urine Appearance Urine pH Ur Specific [place] Urine Protein Urine Glucose (UA) Urine Ketones Urine Blood Urine Nitrite Urine Bilirubin Urine Urobilinogen Ur Leukocyte Esterase Urine WBC (Auto) Urine RBC (Auto) Squamous Epi Cells Auto Urine Mucus (Auto) Urine Ascorbic Acid 09/03/18 09/03/18 09/03/18 13:35 13:35 13:35 WBC RBC Hgb Hct MCV MCH MCHC RDW Plt Count Seg Neutrophils % Lymphocytes % Monocytes % Eosinophils % Basophils % Absolute Neutrophils Absolute Lymphocytes Absolute Monocytes Absolute Eosinophils Absolute Basophils VBG pH VBG pCO2 VBG HCO3 VBG Base Excess Sodium Potassium Chloride Carbon Dioxide Anion Gap BUN Creatinine Est GFR ( Amer) Est GFR (Non-Af Amer) Glucose Hemoglobin A1c % Calcium Magnesium 2.3 Total Bilirubin Direct Bilirubin Neonat Total Bilirubin Neonat Direct Bilirubin Neonat Indirect Bili AST ALT Alkaline Phosphatase Creatine Kinase Troponin I < 0.012 Total Protein Albumin TSH Urine Color STRAW Urine Appearance CLEAR Urine pH 7.0 Ur Specific [place] 1.030 Urine Protein NEGATIVE Urine Glucose (UA) >=500 H Urine Ketones 20 H Urine Blood NEGATIVE Urine Nitrite NEGATIVE Urine Bilirubin NEGATIVE Urine Urobilinogen NEGATIVE Ur Leukocyte Esterase NEGATIVE Urine WBC (Auto) 0 Urine RBC (Auto) 0 Squamous Epi Cells Auto <1 Urine Mucus (Auto) RARE Urine Ascorbic Acid NEGATIVE 09/03/18 09/03/18 13:35 13:35 WBC RBC Hgb Hct MCV MCH MCHC RDW Plt Count Seg Neutrophils % Lymphocytes % Monocytes % Eosinophils % Basophils % Absolute Neutrophils Absolute Lymphocytes Absolute Monocytes Absolute Eosinophils Absolute Basophils VBG pH VBG pCO2 VBG HCO3 VBG Base Excess Sodium Potassium Chloride Carbon Dioxide Anion Gap BUN Creatinine Est GFR ( Amer) Est GFR (Non-Af Amer) Glucose Hemoglobin A1c % > 14.0 H Calcium Magnesium Total Bilirubin Direct Bilirubin Neonat Total Bilirubin Neonat Direct Bilirubin Neonat Indirect Bili AST ALT Alkaline Phosphatase Creatine Kinase Troponin I Total Protein Albumin TSH 0.90 Urine Color Urine Appearance Urine pH Ur Specific [place] Urine Protein Urine Glucose (UA) Urine Ketones Urine Blood Urine Nitrite Urine Bilirubin Urine Urobilinogen Ur Leukocyte Esterase Urine WBC (Auto) Urine RBC (Auto) Squamous Epi Cells Auto Urine Mucus (Auto) Urine Ascorbic Acid - Vital Signs Vital signs: Temp Pulse Resp BP Pulse Ox 97.8 F 103 H 16 111/83 98 09/03/18 13:00 09/03/18 13:00 09/03/18 13:00 09/03/18 13:00 09/03/18 13:00 - Laboratory Result Diagrams: 09/03/18 13:35 09/03/18 13:35 Laboratory results interpreted by me: 09/03/18 09/03/18 09/03/18 13:35 13:35 13:35 RBC 5.64 H Hgb 12.7 L MCV 71 L MCH 22.5 L MCHC 31.6 L VBG HCO3 32.2 H Sodium 130.7 L Chloride 89 L Glucose 683 H* Hemoglobin A1c % Alkaline Phosphatase 131 H Urine Glucose (UA) Urine Ketones 09/03/18 09/03/18 13:35 13:35 RBC Hgb MCV MCH MCHC VBG HCO3 Sodium Chloride Glucose Hemoglobin A1c % > 14.0 H Alkaline Phosphatase Urine Glucose (UA) >=500 H Urine Ketones 20 H - EKG Interpretation by [place] EKG shows normal: [place], Intervals, QRS Complexes. abnormal: ST-T Waves - Mild diffuse ST [place] consistent with early repol Rate: Tachycardia Discharge - Discharge Clinical Impression: Hyperglycemia due to type 2 diabetes mellitus Qualifiers: Diabetes mellitus long term care social worker insulin use: with halfway use Qualified Code(s): E11.65 - Type 2 diabetes mellitus with hyperglycemia; Z79.4 - long term care social worker (current) use of insulin Condition: Good Disposition: HOME, SELF-CARE Instructions: Hyperglycemia ([facility]), Diabetes ([facility]) Additional Instructions: Please watch what you are eating. It is very important that you reduce your carbohydrate intake. You need to check your blood sugar 3 times a day as well. Eat things such as eggs, cheese, lean meats and avoid things such as bread, past a, potatoes, sugary sweetened beverages, desserts. You will need to follow-up with your primary care doctor. I do think that you should be on metformin if you can tolerate it. I am also recommending that you continue with your Lantus every evening. Avoid drinking excess amounts of water as this is diluting your electrolytes. Do not drink more than 2 L of free water a day. Make sure that if your symptoms return that you check your blood sugar. If it is reading excessively high then please return to the ER. Prescriptions: Insulin Glargine,Hum.rec.anlog [Lantus Insulin 100 Unit/1 ml 10 ml] 15 unit SUBCUT QHS 30 Days #1000 unit Metformin HCl 500 mg PO BID 30 Days #90 tablet Referrals: [facility] [Provider Group] - Follow up in 3-5 days
[2018-09-03 20:25] VITALS: BP 121/78
--- NOTE | 2018-09-03 23:46 | EKG REPORT ---
SEVERITY:- ABNORMAL ECG - SINUS RHYTHM VENTRICULAR PREMATURE COMPLEX ST ELEVATION SUGGESTS PERICARDITIS : Confirmed by: Landon Griffin 03-Sep-2018 23:45:39
== END 2018-09-03 20:25 | disposition home or self-care (01) ==
LOC: ER 12:35
DX: E11.65 Type 2 diabetes mellitus with hyperglycemia (principal); Z79.4 Long term (current) use of insulin; R35.8 Other polyuria; R63.1 Polydipsia; H53.8 Other visual disturbances; R53.1 Weakness; F17.200 Nicotine dependence, unspecified, uncomplicated; I10 Essential (primary) hypertension; R00.0 Tachycardia, unspecified; R94.31 Abnormal electrocardiogram [ECG] [EKG]
CPT/HCPCS: 93005; 99284; 96360; 96361; 36415; 82962; 82550; 83735; 84443; 85025; 80053; 81001; 84484; 83036; 82803; 93010; J1815; J7030

== ENCOUNTER 2019-02-06 09:34 | Emergency (ER) | payer SELFPAY ==
--- NOTE | 2019-02-06 10:57 | ER Document Report ---
ED Medical Screen (RME) - General Chief Complaint: Dizziness Stated Complaint: DIZZY,NAUSEA Time Seen by Provider: 02/06/19 10:53 TRAVEL OUTSIDE OF THE [place] IN LAST 30 DAYS: No - HPI Notes: 02/06/19 10:56 Patient is a 48-year-old male with a history of diabetes who presents complaining of nausea, dizziness, blurring of his vision, elevated blood glucose over the past 2 weeks. He has had excessive thirst and urination as well. He has had abdominal cramping and some diarrhea. He is on metformin, but is also supposed to be on insulin however he cannot afford it. Denies fever, chest pain, shortness of breath, vomiting. I have treated and performed a rapid initial assessment of this patient. A comprehensive ED assessment and evaluation of the patient, analysis of test results and completion of medical decision making process will be conducted by additional ED providers. PHYSICAL EXAMINATION: GENERAL: Well-appearing, well-nourished and in no acute distress. A&Ox4. Answers questions appropriately. Neuro: Cranial nerves grossly intact. - Related Data Allergies/Adverse Reactions: No Known Allergies Allergy (Verified 02/06/19 10:49) Past Medical History - Past Medical History Cardiac Medical History: Reports: Hx Hypertension Endocrine Medical History: Reports: Hx Diabetes Mellitus Type 2 Renal/ Medical History: Denies: Hx Peritoneal Dialysis GI Medical History: Reports: Hx Gastroesophageal Reflux Disease Past Surgical History: Reports: Hx Orthopedic Surgery - left hip - Immunizations Hx Diphtheria, Pertussis, Tetanus Vaccination: Yes - 2008 Physical Exam - Vital signs Vitals: Temp Pulse Resp BP Pulse Ox 98.5 F 99 16 126/86 H 100 02/06/19 10:10 02/06/19 10:10 02/06/19 10:10 02/06/19 10:10 02/06/19 10:10 Course - Vital Signs Vital signs: Temp Pulse Resp BP Pulse Ox 98.5 F 99 16 126/86 H 100 02/06/19 10:10 02/06/19 10:10 02/06/19 10:10 02/06/19 10:10 02/06/19 10:10
[2019-02-06] MEDS ORDERED: ONDANSETRON HCL INJ/PF 4 MG/2 ML SDV IV ONE (10:58)
[2019-02-06 11:46] LABS: ABSOLUTE BASOPHILS # (AUTO) 0.1 10^3/uL (0.0-0.2); ABSOLUTE EOSINOPHILS # (AUTO) 0.1 10^3/uL (0.0-0.6); ABSOLUTE LYMPHOCYTES (AUTO) 1.3 10^3/uL (0.5-4.7); ABSOLUTE MONOCYTES (AUTO) 0.5 10^3/uL (0.1-1.4); ABSOLUTE NEUT (AUTO) 7.6 10^3/uL (1.7-8.2); BASOPHILS % (AUTO) 0.6 % (0-2); EOSINOPHILS % (AUTO) 0.8 % (0-6); HEMOGLOBIN 12.3 g/dL (13.5-17.0); LYMPHOCYTES % (AUTO) 13.7 % (13-45); MEAN CORPUSCULAR HEMOGLOBIN 22.9 pg (27.0-33.4); MEAN CORPUSCULAR HGB CONC 31.5 g/dL (32.0-36.0); MEAN CORPUSCULAR VOLUME 73 fl (80-97); MONOCYTES % (AUTO) 4.9 % (3-13); PLATELET COUNT 305 10^3/uL (150-450); RED BLOOD COUNT 5.37 10^6/uL (4.35-5.55); RED CELL DISTRIBUTION WIDTH 14.5 % (11.5-14.0); TOTAL CELLS COUNTED % (AUTO) 100 %; VENOUS BLOOD BASE EXCESS 3.8 mmol/L; VENOUS BLOOD HCO3 29.4 mmol/L (20-32); VENOUS BLOOD PCO2 48.5 mmHg (35-63); VENOUS BLOOD PH 7.4 (7.30-7.42); WHITE BLOOD COUNT 9.5 10^3/uL (4.0-10.5)
[2019-02-06 11:54] LABS: APPEARANCE,URINE CLEAR; BILIRUBIN,URINE NEGATIVE (NEGATIVE); COLOR,URINE STRAW; GLUCOSE, URINE >=500 mg/dL (NEGATIVE); KETONES,URINE NEGATIVE (NEGATIVE); PROTEIN,URINE NEGATIVE (NEGATIVE); UROBILINOGEN,URINE NEGATIVE mg/dL (<2.0)
[2019-02-06 12:09] LABS: ALBUMIN 4.2 g/dL (3.5-5.0); ALKALINE PHOSPHATASE 117 U/L (38-126); ANION GAP 12 (5-19); ASPARTATE AMINO TRANSFERASE 17 U/L (17-59); BILIRUBIN,DIRECT 0.2 mg/dL (0.0-0.4); BILIRUBIN,TOTAL 0.5 mg/dL (0.2-1.3); BLOOD UREA NITROGEN 9 mg/dL (7-20); CARBON DIOXIDE 29 mmol/L (22-30); CHLORIDE 93 mmol/L (98-107); POTASSIUM 4.4 mmol/L (3.6-5.0); TOTAL PROTEIN 7.5 g/dL (6.3-8.2)
[2019-02-06] MEDS: NORMAL SALINE 1000 ML 1,000 ML IV PRN ×2 (12:13→12:18)
[2019-02-06 12:20] LABS: GLUCOSE 567 mg/dL (75-110)
[2019-02-06] MEDS ORDERED: INSULIN REG, HUMAN 100 UNIT/ML 3 ML VIAL (PYX) IV ONE (13:59)
--- NOTE | 2019-02-06 14:16 | ER Document Report ---
ED General - General Chief Complaint: High Blood Sugar Stated Complaint: DIZZY,NAUSEA Time Seen by Provider: 02/06/19 10:53 Information source: Patient Notes: Patient complains of dizziness and blurry vision. He is a known diabetic who should be on insulin but unfortunately he cannot afford it. He denies any trauma. He denies any other medical problems. He is applied for disability but has not received it yet. He denies any chest pain or shortness of breath. No rashes. No headache. No neck pain or stiffness. No other complaints. He is a smoker. TRAVEL OUTSIDE OF THE [place] IN LAST 30 DAYS: No - Related Data Allergies/Adverse Reactions: No Known Allergies Allergy (Verified 02/06/19 10:49) Home Medications: Metformin Past Medical History - Social History Smoking Status: Current Every Day Smoker Chew tobacco use (# tins/day): No Frequency of alcohol use: None Drug Abuse: None Family History: Reviewed & Not Pertinent, DM, Hypertension Patient has suicidal ideation: No Patient has homicidal ideation: No - Past Medical History Cardiac Medical History: Reports: Hx Hypertension Endocrine Medical History: Reports: Hx Diabetes Mellitus Type 2 Renal/ Medical History: Denies: Hx Peritoneal Dialysis GI Medical History: Reports: Hx Gastroesophageal Reflux Disease Past Surgical History: Reports: Hx Orthopedic Surgery - left hip - Immunizations Hx Diphtheria, Pertussis, Tetanus Vaccination: Yes - 2008 Review of Systems - Review of Systems Constitutional: denies: Chills, Fever Cardiovascular: denies: Chest pain, Palpitations -: Yes All other systems reviewed and negative Physical Exam - Vital signs Vitals: Temp Pulse Resp BP Pulse Ox 98.5 F 99 16 126/86 H 100 02/06/19 10:10 02/06/19 10:10 02/06/19 10:10 02/06/19 10:10 02/06/19 10:10 Interpretation: Normal - General General appearance: Appears well, Alert - HEENT Head: Normocephalic, Atraumatic Eyes: Normal Pupils: PERRL - Respiratory Respiratory status: No respiratory distress Chest status: Nontender Breath sounds: Normal Chest palpation: Normal - Cardiovascular Rhythm: Regular Heart sounds: Normal auscultation Murmur: No - Abdominal Inspection: Normal Distension: No distension Bowel sounds: Normal Tenderness: Nontender Organomegaly: No organomegaly - Back Back: Normal, Nontender - Extremities General upper extremity: Normal inspection, Nontender, Normal color, Normal ROM, Normal temperature General lower extremity: Normal inspection, Nontender, Normal color, Normal ROM, Normal temperature, Normal weight bearing. No: Luisa's sign - Neurological Neuro grossly intact: Yes Cognition: Normal Orientation: AAOx4 [place] Coma Scale Eye Opening: Spontaneous [place] Coma Scale Verbal: Oriented [place] Coma Scale Motor: Obeys Commands [place] Coma Scale Total: 15 Speech: Normal Motor strength normal: LUE, RUE, LLE, RLE Sensory: Normal - Psychological Associated symptoms: Normal affect, Normal mood - Skin Skin Temperature: Warm Skin Moisture: Dry Skin Color: Normal Course - Re-evaluation Re-evalutation: 02/06/19 14:19 Labs reviewed. Blood glucose has come down from 567 TO 379 after 2 L of fluid IV. I have also ordered some IV insulin for him. His bicarb on his lab work is 29. This is not consistent with DKA. 02/06/19 15:50 Patient feels better after receiving IV insulin. He has been given information on how to obtain insulin. He will return at once if worse or new symptoms and follow-up with his own physician in the next few days. - Vital Signs Vital signs: Temp Pulse Resp BP Pulse Ox 98.5 F 99 15 138/91 H 100 02/06/19 10:10 02/06/19 10:10 02/06/19 13:01 02/06/19 13:00 02/06/19 13:01 - Laboratory Result Diagrams: 02/06/19 11:31 02/06/19 11:31 Laboratory results interpreted by me: 02/06/19 02/06/19 02/06/19 10:54 11:31 11:31 Hgb 12.3 L MCV 73 L MCH 22.9 L MCHC 31.5 L RDW 14.5 H Seg Neutrophils % 80.0 H Sodium 133.8 L Chloride 93 L Glucose 567 H* POC Glucose 530 H* Urine Glucose (UA) 02/06/19 02/06/19 11:31 13:38 Hgb MCV MCH MCHC RDW Seg Neutrophils % Sodium Chloride Glucose POC Glucose 379 H Urine Glucose (UA) >=500 H Discharge - Discharge Clinical Impression: Hyperglycemia Condition: Stable Disposition: HOME, SELF-CARE Instructions: Dizziness ([facility]), Hyperglycemia ([facility]) Additional Instructions: Return at once if worse or new symptoms. Follow-up with your doctor in the next few days.
[2019-02-06 16:05] VITALS: BP 130/88
== END 2019-02-06 16:05 | disposition home or self-care (01) ==
LOC: ER 09:34
DX: E11.65 Type 2 diabetes mellitus with hyperglycemia (principal); T38.3X6A Underdosing of insulin and oral hypoglycemic [antidiabetic] drugs, initial encounter; Z91.120 Patient's intentional underdosing of medication regimen due to financial hardship; Z91.14 Patient's other noncompliance with medication regimen; Z79.84 Long term (current) use of oral hypoglycemic drugs; R42 Dizziness and giddiness; H53.8 Other visual disturbances; I10 Essential (primary) hypertension; F17.200 Nicotine dependence, unspecified, uncomplicated
CPT/HCPCS: 99284; 96361; 96374; 36415; 82962; 83690; 85025; 80053; 81001; 82803; J1815; J2405; J7030

== ENCOUNTER 2019-03-02 12:18 | Emergency (ER) | payer SELFPAY ==
[2019-03-02 12:26] VITALS: BP 169/88
[2019-03-02] MEDS ORDERED: HYDROCODONE/ACETAMINOPHEN 5-325 MG (6 TAB/ER DISP) PO PRN (13:05)
[2019-03-02] MEDS ORDERED: LIDOCAINE 2% VISCOUS SOLN 15 ML UDCUP PO ONE (13:05)
--- NOTE | 2019-03-02 13:08 | ER Document Report ---
HPI - HPI Time Seen by Provider: 03/02/19 13:01 Pain Level: 5 Notes: Patient is a 48-year-old male no significant past medical history who presents complaining of left upper dental pain tooth #14 is been present for the past several days with abscess and swelling to the left side of his face. Patient states that he is still able to eat and drink otherwise without difficulty. He is urinating normally. No other concerns or complaints. Denies any headache, fever, head injury, neck pain, hoarseness, drooling, URI, sore throat, chest pain, palpitations, syncope, cough, shortness of breath, wheeze, dyspnea, abdominal pain, nausea/vomiting/diarrhea, urinary retention, dysuria, hematuria, or rash. - ROS Systems Reviewed and Negative: Yes All other systems reviewed and negative Past Medical History - Social History Smoking Status: Current Every Day Smoker Family History: Reviewed & Not Pertinent, DM, Hypertension Patient has suicidal ideation: No Patient has homicidal ideation: No - Past Medical History Cardiac Medical History: Reports: Hx Hypertension Endocrine Medical History: Reports: Hx Diabetes Mellitus Type 2 Renal/ Medical History: Denies: Hx Peritoneal Dialysis GI Medical History: Reports: Hx Gastroesophageal Reflux Disease Past Surgical History: Reports: Hx Orthopedic Surgery - left hip - Immunizations Hx Diphtheria, Pertussis, Tetanus Vaccination: Yes - 2008 Vertical Provider Document - CONSTITUTIONAL Agree With Documented VS: Yes Notes: PHYSICAL EXAMINATION: GENERAL: Well-appearing, well-nourished and in no acute distress. HEAD: Atraumatic, normocephalic. EYES: Pupils equal round and reactive to light, extraocular movements intact, sclera anicteric, conjunctiva are normal. ENT: Nares patent and without discharge. oropharynx clear without exudates. No tonsilar hypertrophy or erythema. Moist mucous membranes. No sinus tenderness. Uvula midline. No palatine shift. No tongue protrusion. No respiratory compromise. Mouth: Poor dentition. + severe decay and mild gingivitis. + abscess left upper near #14 with correlating facial swelling to this area.+ tenderness to tooth #14. NECK: Normal range of motion, supple without lymphadenopathy. No rigidity/meningismus. LUNGS: Breath sounds clear to auscultation bilaterally and equal. No wheezes rales or rhonchi. HEART: Regular rate and rhythm without murmurs, rubs, gallops. NEUROLOGICAL: Cranial nerves grossly intact. Normal speech, normal gait. Normal sensory, motor exams PSYCH: Normal mood, normal affect. SKIN: Warm, Dry, normal turgor, no rashes or lesions noted. - INFECTION CONTROL TRAVEL OUTSIDE OF THE [place] IN LAST 30 DAYS: No Course - Re-evaluation Re-evalutation: 03/02/19 Patient is an afebrile, well-hydrated, 48-year-old male who presents to the ED with dental pain/abscess. Vitals are acceptable. PE is otherwise unremarkable. Simple incision and drainage performed successfully without complications and wound culture was obtained. No labs or imaging warranted at this time based on H&P. Viscous lidocaine dispensed today. I will send him home with a prescription for cleocin. Low suspicion for any meningitis, sepsis, peritonsillar/pharyngeal abscess, respiratory compromise, Alan's, temporal arteritis, or other emergent systemic condition at this time. Patient is aware this condition can change from initial presentation and he needs to monitor symptoms closely. Conservative measures otherwise for symptoms. Call to schedule an appointment with a dentist for further evaluation and management. Recheck with your PCM this week as well. Return to the ED with any worsening/concerning symptoms otherwise as reviewed in discharge. Patient is in agreement. - Vital Signs Vital signs: Temp Pulse Resp BP Pulse Ox 98.1 F 108 H 18 169/88 H 100 03/02/19 12:26 03/02/19 12:26 03/02/19 12:26 03/02/19 12:26 03/02/19 12:26 Procedures - Incision and Drainage Mouth Type: Simple Blade size: 11 Incision Method: Incision made by scalpel Amount/type of drainage: moderate purulent Discharge - Discharge Clinical Impression: Dental abscess Condition: Stable Disposition: HOME, SELF-CARE Additional Instructions: [place] and floss twice daily Maintain fluid intake Take antibiotics as directed Mouthwash, salt water gargles, peroxide rinse as needed Tylenol/ibuprofen as needed Recheck with PCM this week Call today/tomorrow and schedule an appointment with your dentist for further evaluation Return to the ED with any worsening symptoms and/or development of fever, headache, facial swelling, swelling of lips/tongue/throat, trouble swallowing, drooling, hoarseness, neck pain/stiffness, chest pain, palpitations, syncope, shortness of breath, trouble breathing, abdominal pain, n/v/d, numbness/tingling, or other worsening symptoms that are concerning to you. Prescriptions: Clindamycin HCl [Cleocin 300 mg Capsule] 300 mg PO QID #40 capsule Forms: Elevated Blood Pressure Referrals: [facility] [ACTIVE STAFF] - Follow up as needed [facility] [Provider Group] - Follow up as needed
== END 2019-03-02 13:40 | disposition home or self-care (01) ==
LOC: ER 12:18
DX: K04.7 Periapical abscess without sinus (principal); F17.200 Nicotine dependence, unspecified, uncomplicated; I10 Essential (primary) hypertension
CPT/HCPCS: 99283; 41800; J3490

== ENCOUNTER 2019-11-20 07:43 | Emergency (ER) | payer SELFPAY ==
[2019-11-20 10:14] LABS: VENOUS BLOOD BASE EXCESS 2.2 mmol/L; VENOUS BLOOD HCO3 29.6 mmol/L (20-32); VENOUS BLOOD PCO2 57.7 mmHg (35-63); VENOUS BLOOD PH 7.33 (7.30-7.42)
[2019-11-20 10:18] LABS: ABSOLUTE EOSINOPHILS # (AUTO) 0.4 10^3/uL (0.0-0.6); ABSOLUTE LYMPHOCYTES (AUTO) 1.4 10^3/uL (0.5-4.7); ABSOLUTE MONOCYTES (AUTO) 0.5 10^3/uL (0.1-1.4); ABSOLUTE NEUT (AUTO) 5.6 10^3/uL (1.7-8.2); BASOPHILS % (AUTO) 0.3 % (0-2); EOSINOPHILS % (AUTO) 5.1 % (0-6); HEMATOCRIT 37.8 % (37.9-51.0); HEMOGLOBIN 12.2 g/dL (13.5-17.0); LYMPHOCYTES % (AUTO) 17.2 % (13-45); MEAN CORPUSCULAR HEMOGLOBIN 23.9 pg (27.0-33.4); MEAN CORPUSCULAR HGB CONC 32.3 g/dL (32.0-36.0); MEAN CORPUSCULAR VOLUME 74 fl (80-97); MONOCYTES % (AUTO) 6.9 % (3-13); PLATELET COUNT 239 10^3/uL (150-450); RED BLOOD COUNT 5.12 10^6/uL (4.35-5.55); RED CELL DISTRIBUTION WIDTH 16.3 % (11.5-14.0); SEGMENTED NEUTROPHILS % (AUTO) 70.5 % (42-78); TOTAL CELLS COUNTED % (AUTO) 100 %; WHITE BLOOD COUNT 7.9 10^3/uL (4.0-10.5)
[2019-11-20 10:19] LABS: INTERNATIONAL RATION (INR) 0.87
[2019-11-20 10:29] LABS: ALBUMIN 4.2 g/dL (3.5-5.0); ALKALINE PHOSPHATASE 109 U/L (38-126); ANION GAP 10 (5-19); ASPARTATE AMINO TRANSFERASE 15 U/L (17-59); BILIRUBIN,DIRECT 0.2 mg/dL (0.0-0.4); BILIRUBIN,TOTAL 0.7 mg/dL (0.2-1.3); BLOOD UREA NITROGEN 19 mg/dL (7-20); CALCIUM 9.6 mg/dL (8.4-10.2); CARBON DIOXIDE 30 mmol/L (22-30); CHLORIDE 97 mmol/L (98-107); POTASSIUM 4.5 mmol/L (3.6-5.0); TOTAL PROTEIN 7.4 g/dL (6.3-8.2)
[2019-11-20 10:37] LABS: GLUCOSE 414 mg/dL (75-110)
[2019-11-20] MEDS ORDERED: LIDOCAINE 1% INJ-PF (10 MG/ML) 30 ML SDV INJ ONE (10:50)
[2019-11-20] MEDS ORDERED: SULFAMETHOXAZOLE/TRIMETHOPRIM 800-160 MG TABLET PO ONE (10:50)
--- NOTE | 2019-11-20 11:24 | ER Document Report ---
Entered by BRIANA ROTHMAN SCRIBE 11/20/19 1029 Acting as scribe for:VERONICA MORRELL MD ED General - General Chief Complaint: Wound Infection Stated Complaint: WOUND CHECK, LEG PAIN Time Seen by Provider: 11/20/19 10:25 Primary Care Provider: [facility] [Outside] - Follow up as needed Mode of Arrival: Ambulatory Information source: Patient Notes: This 49 year old male patient presents to the emergency department today with complaints of an anterior right lower extremity wound. He reports that he recently had an abscess drained on the right posterior lower extremity in [place]. Patient has been out of his diabetes medication for at least 3.5 months. TRAVEL OUTSIDE OF THE [place] IN LAST 30 DAYS: No - Related Data Allergies/Adverse Reactions: No Known Allergies Allergy (Verified 11/20/19 09:25) Past Medical History - General Information source: Patient - Social History Smoking Status: Current Every Day Smoker Cigarette use (# per day): Yes Chew tobacco use (# tins/day): No Frequency of alcohol use: Occasional Drug Abuse: None Lives with: Family Family History: Reviewed & Not Pertinent, DM, Hypertension Patient has homicidal ideation: No - Past Medical History Cardiac Medical History: Reports: Hx Hypertension Endocrine Medical History: Reports: Hx Diabetes Mellitus Type 2 GI Medical History: Reports: Hx Gastroesophageal Reflux Disease Past Surgical History: Reports: Hx Orthopedic Surgery - left hip - Immunizations Hx Diphtheria, Pertussis, Tetanus Vaccination: Yes - 2008 Review of Systems - Review of Systems Constitutional: See HPI, Other - Out of DM medication EENT: No symptoms reported Cardiovascular: No symptoms reported Respiratory: No symptoms reported Gastrointestinal: No symptoms reported Genitourinary: No symptoms reported Male Genitourinary: No symptoms reported Musculoskeletal: No symptoms reported Skin: See HPI, Change in color, Lesions Hematologic/Lymphatic: No symptoms reported Neurological/Psychological: No symptoms reported -: Yes All other systems reviewed and negative Physical Exam - Vital signs Vitals: Temp Pulse Resp BP Pulse Ox 98.8 F 114 H 18 153/77 H 100 11/20/19 07:49 11/20/19 07:49 11/20/19 07:49 11/20/19 07:49 11/20/19 07:49 - Notes Notes: Physical Exam: General: Alert, appears well. HEENT: Normocephalic. Atraumatic. PERRL. Extraocular movements intact. Oropharynx clear. Neck: Supple. Non-tender. Respiratory: No respiratory distress. Clear and equal breath sounds bilaterally. Cardiovascular: Regular rate and rhythm. Abdominal: Normal Inspection. Non-tender. No distension. Normal Bowel Sounds. Back: No gross abnormalities. Extremities: Moves all four extremities. Upper extremities: Normal inspection. Normal ROM. Lower extremities: see skin exam Neurological: Normal cognition. AAOx4. Normal speech. Psychological: Normal affect. Normal Mood. Skin: Right posterior upper calf has previously scabbed over drained abscess. Right lower anterior leon has erythematous area with surrounding skin peeling away, there is a central scabbed over area of increased warmth and tenderness to palpation. Applying pressure to the wound expresses brown pus. Course - Re-evaluation Re-evalutation: 11/20/19 11:55 The patient's blood sugar is 414, and A1c was 11.0. I will put him on Metformin and glimepiride, as he cannot afford these were previous prescription for insulin would go on field. - Vital Signs Vital signs: Temp Pulse Resp BP Pulse Ox 98.0 F 97 18 131/75 H 99 11/20/19 09:18 11/20/19 09:18 11/20/19 09:18 11/20/19 09:18 11/20/19 09:18 - Laboratory Result Diagrams: 11/20/19 09:40 11/20/19 09:40 Laboratory results interpreted by me: 11/20/19 11/20/19 11/20/19 09:35 09:40 09:40 Hgb 12.2 L Hct 37.8 L MCV 74 L MCH 23.9 L RDW 16.3 H Chloride 97 L Glucose 414 H* POC Glucose 382 H Hemoglobin A1c % AST 15 L 11/20/19 09:40 Hgb Hct MCV MCH RDW Chloride Glucose POC Glucose Hemoglobin A1c % 11.0 H AST - EKG Interpretation by [place] EKG shows normal: Sinus rhythm, [place], Intervals, QRS Complexes. abnormal: ST-T Waves - ST elevation is probably early repolarization and has been present on previous EKGs. Rate: Normal - 86 Rhythm: NSR When compared to previous EKG there are: No significant change Procedures - Incision and Drainage Right Lower Leg Time completed: 11:25 Type: Simple Anesthetic type: 1% Lidocaine mL's of anesthetic: 4 Blade size: 11 I&D procedure: Shurclens applied, Iodoform packing placed Incision Method: Incision made by scalpel Amount/type of drainage: 1 mL of pus Notes: 11/20/19 11:29 1/2 cm longitudinal incision made with a scalpel. Pus pocket was actually located approximately and entered with a mosquito clamp. Pus pocket was ir rigated out with 20 mils of normal saline until clear. Pocket was packed with quarter inch iodoform gauze. Discharge - Discharge Clinical Impression: Abscess of right lower leg, Has run out of medications Hyperglycemia due to type 2 diabetes mellitus Qualifiers: Diabetes mellitus mcc insulin use: unspecified superintendent terminal insulin use status Qualified Code(s): E11.65 - Type 2 diabetes mellitus with hyperglycemia Condition: Stable Disposition: HOME, SELF-CARE Additional Instructions: Abscess You have an abscess (boil). This a pus-forming infection, usually due to staph. Some boils may be left to drain on their own, but most require lancing. From the time the tender lump first appears, it may be three or four days before the abscess is ready to amara. Local heat and rest help at this stage of treatment. An antibiotic may prevent spread of the infection. Once the abscess is opened, packing may be placed into it. This is done so pus is not sealed inside by premature closure of the cavity. The packing will be removed at your follow-up visit or you may be advised to remove it yourself at home. Sometimes this packing must be replaced a few times during healing. The wound will heal with surprisingly little scar. Depending on the size and location of an abscess, healing can take one to four weeks. You may shower and wash the area around the incision site two or three times a day. Antibiotics may be prescribed, but are usually not necessary after an abscess has been drained. If you develop fever, chilling, worsening pain, or increasing swelling in the area, call the doctor or return immediately. Diabetes You have an abnormally high blood sugar. This is called diabetes. You will be scheduled for further evaluation. It's very important that you follow through. Uncontrolled high blood sugar leads to early heart disease, strokes, nerve damage, eye damage, and kidney damage. All diabetics should follow a diet designed to control the blood sugar. Overweight diabetics should exercise regularly and lose weight. If this is not sufficient to control the blood sugar, pills or insulin shots are necessary. Younger people who develop diabetes almost always require insulin daily. Home testing of blood sugars or urine sugar is required. Diabetic teaching is available to help you figure insulin doses and monitor the blood sugar. Call the physician if there is faintness, excess sleepiness, or very rapid breathing. If hypoglycemia (LOW blood sugar) develops, symptoms are shakiness, weakness, sweating, and confusion. In this case, you should eat or drink something with sugar at once. Take the medications as prescribed. Remove the packing from your leg wound in 2 days. After you remove the packing, clean the wound using peroxide and a Q-tip a few times daily to keep the wound open and allow it to heal from the inside out. You should check your blood sugars at home on a daily basis. Follow-up with a local primary care provider or the [facility] to manage your diabetes. You will need monitoring of your blood sugars to determine if you will require additional medication to treat your diabetes. RETURN TO THE EMERGENCY ROOM IF ANY NEW OR WORSENING SYMPTOMS. Prescriptions: Metformin HCl 850 mg PO BID #60 tablet Sulfamethoxazole/Trimethoprim [Septra-Ds 800-160 mg Tablet] 2 tab PO BID #28 tablet Referrals: [facility] [Outside] - Follow up in 1 week I personally performed the services described in the documentation, reviewed and edited the documentation which was dictated to the scribe in my presence, and it accurately records my words and actions.
[2019-11-20 12:19] VITALS: BP 136/87
--- NOTE | 2019-11-21 00:45 | EKG REPORT ---
SEVERITY:- ABNORMAL ECG - SINUS RHYTHM ST ELEV, PROBABLE NORMAL EARLY REPOL PATTERN : Confirmed by: Betty Diaz MD 21-Nov-2019 00:45:12
== END 2019-11-20 12:19 | disposition home or self-care (01) ==
LOC: ER 07:43
DX: L02.415 Cutaneous abscess of right lower limb (principal); E11.65 Type 2 diabetes mellitus with hyperglycemia; F17.210 Nicotine dependence, cigarettes, uncomplicated; I10 Essential (primary) hypertension; Z91.14 Patient's other noncompliance with medication regimen
CPT/HCPCS: 93005; 99284; 36415; 87040; 87070; 87205; 82962; 83605; 85025; 85610; 87077; 80053; 87186; 83036; 82803; 93010; 10060; J3490